=== PATIENT | male | born 1955 | race Caucasian/White ===

== ENCOUNTER → 2018-05-19 | Outpatient (CLI) | payer BC ==
[~2018-05-19] VITALS: Ht 170.2 cm; Wt 78.9 kg
[~2018-05-19] MED LIST: ALBU17AE23 INH; ASPI-892 PO; ATOR20TA66 PO; ATOR40TA PO; CATHETER FLUSH 10 ML SYR IV PRN; ENLP5T PO; FISH1CAP15 PO; GABA-488 PO; IBUP200C PO; METO50TA2 PO; MNTL10T PO
[2018-05-19 08:57] VITALS: BP 153/89
[2018-05-19 09:05] VITALS: BP 168/85
[2018-05-19 09:10] VITALS: BP 224/103
[2018-05-19 09:12] VITALS: BP 218/102
[2018-05-19 09:14] VITALS: BP 174/90
[2018-05-19 09:16] VITALS: BP 155/93
--- NOTE | 2018-05-19 12:41 | STRESS TEST ---
DATE OF SERVICE: 05/19/2018 EXERCISE MYOVIEW STRESS TEST REPORT REFERRING PHYSICIAN: [facility]. Baseline heart rate is 56. Baseline blood pressure is 133/82. Baseline EKG is sinus rhythm with no ischemic changes. In summary, the patient was injected with 10.24 mCi of technetium-99 Myoview and the resting images were obtained. Then, the patient started exercising with a baseline heart rate, blood pressure and EKG mentioned above. The patient was able to exercise for a total of 7 minutes 30 seconds on standard Chemo protocol. With peak exercise level, EKG was showing ST elevation in II, III, aVF, V4 and V5. Late, in recovery, the patient had an episode of wide complex tachycardia with a rate of 100 that short lived. It then returned to baseline at the end of the test. The resting and stress images were reviewed and compared in the short axis, horizontal long axis and vertical long axis views. Review of the images showed decreased uptake involving the whole inferior wall, inferoapical segment through apex and inferolateral wall with subtle reversibility. SSS is 28. SDS is 0. TID value 1.05. On the gated images, the left ventricle appeared to be dilated with severe hypokinesia to akinesia involving the whole inferior wall, inferoapical segment, inferior septum and inferolateral wall. Calculated ejection fraction is 26%. CONCLUSION: 1. Good exercise tolerance, a total of 7 minutes 30 seconds on standard Cehmo protocol, achieving 94% of maximum expected heart rate. 2. Severe hypertensive response to exercise returned to baseline during recovery. Peak exercise blood pressure was 224/103. 3. Positive exercise stress test by EKG criteria. 4. Fixed defect involving the whole inferior wall, inferoapical segment through apex and inferolateral wall with subtle reversibility. 5. Prominent left ventricle with severe hypokinesia to akinesia involving the whole inferior wall, inferolateral wall and inferoapical area with calculated ejection fraction 26%. Job ID: [id number] DocumentID: [id number] Dictated Date: 05/19/2018 11:47:27 Button Maker Date: 05/19/2018 12:41:28 Dictated By: DARVIN DEE MD
== END ==
LOC: CARD 07:48
PROVIDERS: ATTEND Internal Medicine Cardiovascular Disease
DX: I25.10 Atherosclerotic heart disease of native coronary artery without angina pectoris (principal); I11.0 Hypertensive heart disease with heart failure; I50.22 Chronic systolic (congestive) heart failure; E78.5 Hyperlipidemia, unspecified; E11.9 Type 2 diabetes mellitus without complications; Z72.0 Tobacco use
CPT/HCPCS: 78452; 93017

== ENCOUNTER → 2018-05-21 | Outpatient (CLI) | payer BC ==
[~2018-05-21] MED LIST changes: -CATHETER FLUSH 10 ML SYR IV PRN
== END ==
LOC: CARD 09:20
PROVIDERS: ATTEND Internal Medicine Cardiovascular Disease
DX: I25.10 Atherosclerotic heart disease of native coronary artery without angina pectoris (principal); I11.0 Hypertensive heart disease with heart failure; I50.9 Heart failure, unspecified; E78.5 Hyperlipidemia, unspecified; E11.9 Type 2 diabetes mellitus without complications; I08.1 Rheumatic disorders of both mitral and tricuspid valves; Z72.0 Tobacco use
CPT/HCPCS: 93306

== ENCOUNTER 2018-05-28 06:46 | Day surgery (SDC) | payer BC ==
[~2018-05-28] VITALS: Ht 170.2 cm; Wt 78.9 kg
[2018-05-28] VITALS (10 sets, daily range): BP systolic 142–160; BP diastolic 88–96
--- OUTSIDE RECORDS SUMMARY | 2018-05-28 06:48 | XMS REPORT ---
Author Author KIYA BIGGS Organization [facility] Address [address] [place] [address] Care Team Providers Care Burnt Lime Drawer Name Role Phone KIYA BIGGS Unavailable PROBLEMS Type Condition ICD9-CM Code QLN49-HK Code Onset Dates Condition Status SNOMED Code Problem Mixed hyperlipidemia E78.2 Active 478077112 Problem Hypertension, benign I10 Active 01824565 Problem Coronary artery disease involving [place] heart without angina pectoris , unspecified vessel or lesion type I25.10 Active 37825429 Problem Benign essential HTN I10 Active 55182272 Problem Hyperlipidemia, mixed E78.2 Active 258895958 Problem Diabetes type 2, controlled E11.9 Active 70252385 Problem COPD (chronic obstructive pulmonary disease) J44.9 Active 37829234 Problem Arthritis M19.90 Active 5850204 Problem Lumbago with sciatica, left side M54.42 Active 121122642 ALLERGIES No Information ENCOUNTERS Encounter Location Date Diagnosis [facility] [address] [address] Apr, [facility] [address] [address] Jan, Acute left-sided low back pain without sciatica M54.5 and Gross hematuria R31.0 [facility] [address] [address] Nov, Diabetes type 2, controlled E11.9 and Hypertension, benign I10 [facility] [address] [address] Sep, [facility] [address] [address] Jun, [facility] [address] [address] Apr, Oral abscess K12.2 and Fungal rash of trunk B36.9 [facility] [id number] [place] [address] Apr, [facility] [id number] [place] [address] Mar, [facility] [id number] [place] [address]- [address] Mar, [place] [address] [address] Mar, COPD (chronic obstructive pulmonary disease) J44.9 [place] [address] [address] Mar, Diabetes type 2, controlled E11.9 ; Arthritis M19.90 and Lumbago with sciatica, left side M54.42 [place] [address] [address] Mar, Benign essential HTN I10 and Hyperlipidemia, mixed E78.2 [place] [id number] [place] [address] Mar, Benign essential HTN I10 and Hyperlipidemia, mixed E78.2 [place] [id number] [place] [address] December, COPD (chronic obstructive pulmonary disease) J44.9 [place] [id number] [place] [address] Oct, [place] [id number] [place] [address] Sep, Hypertension, benign I10 and Diabetes type 2, controlled E11.9 [facility] [id number] [place] [address]- [address] Aug, [place] [id number] [place] [address] Aug, Acute nasopharyngitis J00 [facility] [address] [place] [address]- 6[address] Jun, [facility] [id number] [place] [address]- [address] Apr, [facility] [id number] [place] [address]- [address] Mar, [facility] [address] [address] Nov, Type 2 diabetes mellitus without complications E11.9 ; COPD (chronic obstructive pulmonary disease) J44.9 ; Coronary artery disease involving [place] heart without angina pectoris, unspecified vessel or lesion type I25.10 and Arthritis M19.90 [facility] [id number] [place] [address]695- 5544 Oct, CAD (coronary artery disease) I25.10 ; Chronic systolic heart failure I50.22 ; Benign essential HTN I10 and Hyperlipidemia, mixed E78.2 [facility] [id number] [place] [address]- 3[address] Sep, [facility] [id number] [place] [address]25- 37[address] Sep, [facility] [id number] [place] [address]- [address] Jul, [facility] [id number] [place] [address] 6[address]51- 80[address] Jun, Granuloma annulare L92.0 [facility] [id number] [place] [address]- 89[address] Mar, Diabetes 250.00 and Arthritis 716.90 [facility] [address] [place] [id number] Mar, Dental examination V72.2 [facility] [id number] [place] [address]- 76[address] Feb, [facility] [id number] [address] Feb, Diabetes 250.00 [facility] [address] [id number] [address] December, Diabetes mellitus 250.00 and Arthritis 716.90 [facility] [address] [id number] [place] [address] Nov, [facility] [address] [id number], [place] [address] Nov, [facility] [address] [id number] [place] [address] 26[address] Jun, [facility] [id number] [place] [address]- [address] Jun, [facility] [address] [facility] [id number] [place] [address] May, [facility] [address] [facility] [id number], [place] [address] May, [facility] [address] [id number] [place] [address]- 3868 May, [facility] [address] [facility] [id number], [place] [address] May, [facility] [address] [id number][place] [address] 9[address] May, [facility] [address] [id number], [place] [address] May, [facility] [address] [facility] [id number][place] [address] May, [facility] [address] [id number], [place] [address] May, [facility] [place] [facility] [address] [facility] [id number], [place] [address] Mar, [facility] [address] [id number] [place] [address]- [address] Mar, [facility] [place] [facility] [address] [id number] [place] [address]- 58[address] Mar, [facility] [place] [facility] [address] [id number] [place] [address]- 7600 Mar, [facility] [place] [facility] [address] [id number] [place] [address]- 1541 Jan, [facility] [place] [facility] [address] [id number] [place] [address]- 5[address] Jan, [facility] [place] [facility] [address] [id number] [place] [address]- 3764 Nov, [facility] [place] [facility] [address] [id number] [place] [address]- 3418 Nov, [facility] [place] [facility] [address] [id number] [place] [address]- 7613 Nov, [facility] [place] [facility] [address] [id number] [place] [address]- 4428 Nov, [facility] [place] [facility] [address] [id number] [place] [address]- 2127 Nov, [facility] [place] [facility] [address] [id number] [place] [address]- 4845 Nov, [facility] [place] [facility] [address] [id number] [place] [address]- 8401 Aug, [facility] [place] [facility] [address] [id number] [place] [address]- 3259 Aug, [facility] [place] [facility] [address] [id number] [place] [address]- 2312 Apr, [facility] [place] [facility] [address] [id number] [place] [address]- 8196 14 Apr, 2013 [facility] [place] [facility] [address] [id number] [place] [address]- [address] 06 Apr, 2013 [facility] [place] [facility] [address] [id number] [place] [address]- 3206 Jan, [facility] [place] [facility] [address] [id number] [place] [address]- 9935 Jan, [facility] [place] [facility] [address] [id number] [place] [address]- 69[address] December, [facility] [place] [facility] [address] [id number] [place] [address]- 9627 Sep, [facility] [place] [facility] [address] [id number] [place] [address]- 3929 Sep, [facility] [place] [facility] [address] [id number] [place] [address]- 9705 Aug, [facility] [address] [id number] [place] [address]- 3984 Jul, [facility] [address] [id number] [place] [address]- 6814 Jul, [facility] [place] [facility] [address] [id number] [place] [address]- 1063 Jul, [facility] [address] [id number] [place] [address]- 8271 Jul, [facility] [place] [facility] [address] [id number] [place] [address]- 1690 Jun, [facility] [place] [facility] [address] [id number] [place] [address]- 0405 Jun, [facility] [place] [facility] [address] [id number] [place] [address]- 2663 Jun, [facility] [place] [facility] [address] [id number] [place] [address]- 6248 Jun, [facility] [place] [facility] [address] [id number] [place] [address]- 8409 Jun, [facility] [place] [facility] [address] [id number], [place] [address]- 2546 Jun, [facility] [address] [address]- [address] May, [facility] [address] [address]- [address] May, [facility] [address] [address]- [address] Jan, [facility] [address] [address]- 8[address] Jan, [facility] [address] [address]- 4199 Jan, [facility] [address] [place] [address]- [address] December, [facility] [address] [address]- [address] Sep, [facility] [address] [address]- 8201 Jun, [facility] [address] [address]- 0562 Jun, [facility] [address] [address]- [address] 13 Apr, 2010 [facility] [id number] [address]- [address] 14 Apr, 2009 IMMUNIZATIONS No Known Immunizations SOCIAL HISTORY Never Assessed REASON FOR VISIT Referral PLAN OF CARE VITAL SIGNS MEDICATIONS Unknown Medications RESULTS No Results PROCEDURES No Known procedures INSTRUCTIONS MEDICATIONS ADMINISTERED No Known Medications MEDICAL (GENERAL) HISTORY Type Description Date Medical History hypertension Medical History chronic obstructive pulmonary disease (COPD) Medical History coronary artery disease Medical History hyperlipidemia Medical History eczema Medical History shingles Medical History herniated disc C1, C2 Medical History echocardiogram (12/2010): moderate MR, EF 40%, moderate hypokinesia Surgical History tonsillectomy Surgical History appendectomy Surgical History heart cath 12/2014 Surgical History quadruple bypass 06/2012 Surgical History left thumb reattached Hospitalization History surgeries
--- OUTSIDE RECORDS SUMMARY | 2018-05-28 06:49 | XMS REPORT ---
Author Author JERRY ALEXANDRA Organization [employer] Address Unknown Phone Unavailable Care Team Providers Care Rack Puller Name Role Phone JERRY ALEXANDRA CP Unavailable Allergies No Known Allergies Problems Problem Type Condition ICD-9 Code Onset Dates Condition Status Problem Coronary atherosclerosis of unspecified type of vessel, alutiiq or graft 414.00 Active Problem Unspecified pruritic disorder 698.9 Active Problem Herpes zoster without mention of complication 053.9 Active Assessment Dental examination V72.2 Active Problem Other and unspecified hyperlipidemia 272.4 Active Problem Chronic airway obstruction, not elsewhere classified 496 Active Problem Counseling on substance use and abuse V65.42 Active Problem Diabetes 250.00 Active Problem Rash and other nonspecific skin eruption 782.1 Active Problem Other atopic dermatitis and related conditions 691.8 Active Problem Essential hypertension, benign 401.1 Active Problem Candidiasis of other urogenital sites 112.2 Active Medications No Known Medications Procedures Procedure Coding System Code Date INTRAORL-PERIAPICAL 1 FILM 53200 CPT-4 D0220 Mar 15, 2015 EXTRAC ERUPTED TOOTH/EXPOSED ROOT CPT-4 D7140 Mar 15, 2015 LTD ORAL EVALUATION - PROBLEM FOCUS CPT-4 D0140 Mar 15, 2015 EXTRAC ERUPTED TOOTH/EXPOSED ROOT CPT-4 D7140 Mar 15, 2015 Results No Known Results Summary Purpose [employer] Submission
--- OUTSIDE RECORDS SUMMARY | 2018-05-28 06:49 | XMS REPORT ---
Author RADHA Agrawal Organization [employer] Address Unknown Phone Unavailable Care Team Providers Care Netting Inspector Name Role Phone RADHA PAYNE CP Unavailable Allergies No Known Allergies Problems Problem Type Condition Code Onset Dates Condition Status Problem Hypertension, benign I10 Active Problem Coronary artery disease involving [place] heart without angina pectoris , unspecified vessel or lesion type I25.10 Active Problem COPD (chronic obstructive pulmonary disease) J44.9 Active Problem Mixed hyperlipidemia E78.2 Active Problem Diabetes type 2, controlled E11.9 Active Medications No Known Medications Results No Known Results Summary Purpose [employer] Submission
--- OUTSIDE RECORDS SUMMARY | 2018-05-28 06:49 | XMS REPORT ---
Author Author NOREEN LYNCH [facility] Address [address] [place] [address] Care Team Providers Care Vacuum Technician Name Role Phone NOREEN LYNCH Unavailable PROBLEMS Type Condition ICD9-CM Code QGC58-HC Code Onset Dates Condition Status SNOMED Code Problem Mixed hyperlipidemia E78.2 Active 607804977 Problem Hypertension, benign I10 Active 62175397 Problem Coronary artery disease involving [place] heart without angina pectoris , unspecified vessel or lesion type I25.10 Active 41853998 Problem Benign essential HTN I10 Active 69683595 Problem Hyperlipidemia, mixed E78.2 Active 385872387 Problem Diabetes type 2, controlled E11.9 Active 64075559 Problem COPD (chronic obstructive pulmonary disease) J44.9 Active 17635596 Problem Arthritis M19.90 Active 0240472 Problem Lumbago with sciatica, left side M54.42 Active 177017577 ALLERGIES Substance Reaction Event Type Date Status N.K.D.A. Unknown Non Drug Allergy Aug, Unknown SOCIAL HISTORY No smoking Hx information available PLAN OF CARE VITAL SIGNS Height 67 in 2016-08-14 Weight 195 lbs 2016-08-14 Temperature 98.1 degrees Fahrenheit 2016-08-14 Heart Rate 80 bpm 2016-08-14 Respiratory Rate 20 2016-08-14 BMI 30.54 kg/m2 2016-08-14 Blood pressure systolic 140 mmHg 2016-08-14 Blood pressure diastolic 80 mmHg 2016-08-14 MEDICATIONS Medication Instructions Dosage Frequency Start Date End Date Duration Status Enalapril Maleate 5 mg 1 tablet by Oral route 2 times per day Mar, Active Ibuprofen 600 MG Orally every 6 hrs 1 tablet as needed 6h Active Aspirin 81 MG Orally Once a day 1 tablet 24h Active Pseudoephedrine HCl 60 mg Orally every 6 hrs 1 tablet as needed 6h Aug, Active Fish Oil 1000 MG Orally twice a day 1 capsule 12h Active ProAir HFA 108 (90 Base) MCG/ACT Inhalation every 4 hrs 2 puffs as needed 4h Active Blood Glucose Monitor Blood Glucose test blood sugar 12h 27 Feb, 2015 Active Metformin HCl 1,000 TAKE ONE TABLET BY MOUTH TWICE A DAY WITH MEALS 30 Active Lipitor 20 MG Orally Once a day 1 tablet 24h Active Metoprolol Tartrate 50 MG TAKE ONE TABLET BY MOUTH TWICE DAILY WITH MEALS 30 Active Neurontin 300 MG TAKE ONE CAPSULE BY MOUTH THREE TIMES DAILY FOR SHINGLES RELATED NEUROPATHY 30 Active RESULTS No Results PROCEDURES Procedure Date Ordered Related Diagnosis Body Site Office Visit, Est Pt., Level 2 Aug 14, 2016 IMMUNIZATIONS No Known Immunizations
--- OUTSIDE RECORDS SUMMARY | 2018-05-28 06:49 | XMS REPORT ---
Author Author KIYA BIGGS Organization [facility] Address [address] [place] [address] Care Team Providers Care Laboratory Engineer Name Role Phone KIYA BIGGS Unavailable PROBLEMS Type Condition ICD9-CM Code RSP90-MD Code Onset Dates Condition Status SNOMED Code Problem Mixed hyperlipidemia E78.2 Active 034437811 Problem Hypertension, benign I10 Active 31834819 Problem Coronary artery disease involving [place] heart without angina pectoris , unspecified vessel or lesion type I25.10 Active 55126442 Problem Benign essential HTN I10 Active 97998637 Problem Hyperlipidemia, mixed E78.2 Active 234567533 Problem Diabetes type 2, controlled E11.9 Active 84620475 Problem COPD (chronic obstructive pulmonary disease) J44.9 Active 19360296 Problem Arthritis M19.90 Active 4939266 Problem Lumbago with sciatica, left side M54.42 Active 670948453 ALLERGIES No Information SOCIAL HISTORY Never Assessed PLAN OF CARE VITAL SIGNS MEDICATIONS Medication Instructions Dosage Frequency Start Date End Date Duration Status ProAir HFA 108 (90 Base) MCG/ACT Inhalation every 4 hrs 2 puffs as needed 4h 30 days Active RESULTS No Results PROCEDURES No Known procedures IMMUNIZATIONS No Known Immunizations MEDICAL (GENERAL) HISTORY Type Description Date Medical [...]
--- OUTSIDE RECORDS SUMMARY | 2018-05-28 06:49 | XMS REPORT ---
Author KIYA Sigala [facility] [employer] Address Unknown Phone Unavailable Care Team Providers Care Bobj Developer Name Role Phone KIYA BIGGS CP Unavailable Allergies, Adverse Reactions, Alerts Substance Reaction Event Type N.K.D.A. Info Not Available Non Drug Allergy Problems Problem Type Condition Code Onset Dates Condition Status Problem Hypertension, benign I10 Active Problem Coronary artery disease involving [place] heart without angina pectoris , unspecified vessel or lesion type I25.10 Active Problem COPD (chronic obstructive pulmonary disease) J44.9 Active Assessment Granuloma annulare L92.0 Active Problem Mixed hyperlipidemia E78.2 Active Problem Diabetes type 2, controlled E11.9 Active Medications Medication Code System Code Instructions Start Date End Date Status Dosage Metoprolol Tartrate [facility] 37648046614 50 MG TAKE ONE TABLET BY MOUTH TWICE DAILY WITH MEALS Metformin HCl [facility] [address]-00 1000 MG Orally Twice a day December 31, 2014 1 tablet with meals Aspirin [facility] [address]-20 81 MG Orally Once a day 1 tablet Blood Glucose Monitor [facility] 0 Blood Glucose 2 times a day March 07, 2015 test blood sugar ProAir HFA [facility] 52679829465 108 (90 Base) MCG/ACT INHALE TWO PUFFS BY MOUTH FOUR TIMES DAILY Neurontin [facility] 99206909111 300 MG TAKE ONE CAPSULE BY MOUTH THREE TIMES DAILY FOR SHINGLES RELATED NEUROPATHY Enalapril Maleate [facility] [address]-38 5 mg Mar 19, 2014 1 tablet by Oral route 2 times per day Triamcinolone Acetonide [facility] [address]-04 0.1 % Externally Twice a day Jun 22, 2015 1 application to affected area Ibuprofen [facility] [address]-84 600 MG Orally every 6 hrs 1 tablet as needed Procedures Procedure Coding System Code Date Office Visit, Est Pt., Level 3 CPT-4 31112 Jun 22, 2015 Vital Signs Date/Time: Jun 22, 2015 Temperature 98.4 F Weight 203.7 lbs Height 67 in BMI 31.90 Index Blood Pressure Diastolic 76 mmHg Blood Pressure Systolic 112 mmHg Cardiac Monitoring Heart Rate 64 bpm Results No Known Results Summary Purpose [employer] Submission
--- OUTSIDE RECORDS SUMMARY | 2018-05-28 06:49 | XMS REPORT ---
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 Name Role Phone KIYA BIGGS Unavailable PROBLEMS Type Condition ICD9-CM Code BVC96-CJ Code Onset Dates Condition Status SNOMED Code Problem Mixed hyperlipidemia E78.2 Active 028417395 Problem Hypertension, benign I10 Active 10737676 Problem Coronary artery disease involving belkofski heart without angina pectoris , unspecified vessel or lesion type I25.10 Active 41355109 Problem Benign essential HTN I10 Active 38312911 Problem Hyperlipidemia, mixed E78.2 Active 979304075 Problem Diabetes type 2, controlled E11.9 Active 27098481 Problem COPD (chronic obstructive pulmonary disease) J44.9 Active 96347023 Problem Arthritis M19.90 Active 1112349 Problem Lumbago with sciatica, left side M54.42 Active 297819197 ALLERGIES No Known Allergies ENCOUNTERS Encounter Location Date Diagnosis [place] [id number] [address] Jan, Acute left-sided low back pain without sciatica M54.5 and Gross hematuria R31.0 [place] [address] [place] [id number] [place] [address]7038- [address]32 Nov, Diabetes type 2, controlled E11.9 and Hypertension, benign I10 [facility] [address] [address] [id number] [place] [address] 22188- 4398 Sep, [facility] [address] [address] Jun, [facility] [address] [id number] [place] [address] Apr, Oral abscess K12.2 and Fungal rash of trunk B36.9 [facility] [address] [place] [id number] [place] [address] Apr, [facility] [address] [id number] [place] [address] 28257- 6867 Mar, [facility] [id number] [place] [address] 87710- 0680 Mar, [facility] [address] [address] [id number] [place] [address] 18180- 6827 Mar, COPD (chronic obstructive pulmonary disease) J44.9 [facility] [address] [address] [id number] [place] [address] 75531- 2690 Mar, Diabetes type 2, controlled E11.9 ; Arthritis M19.90 and Lumbago with sciatica, left side M54.42 [facility] [id number] [place] [address] 76114- 3788 Mar, Benign essential HTN I10 and Hyperlipidemia, mixed E78.2 [facility] [id number] [place] [address] 21061- 4049 Mar, Benign essential HTN I10 and Hyperlipidemia, mixed E78.2 [facility] [id number] [place] [address] 99317- 1853 December, COPD (chronic obstructive pulmonary disease) J44.9 [facility] [id number] [place] [address] 93885- 3399 Oct, [facility] [id number] [place] [address] 86368- 3767 Sep, Hypertension, benign I10 and Diabetes type 2, controlled E11.9 [facility] [id number] [place] [address] 24059- 3046 Aug, [facility] [id number] [place] [address] 34301- 5116 Aug, Acute nasopharyngitis J00 [facility] [address] [id number] [place] [address] 25658- 9365 Jun, [facility] [address] [id number] [place] [address] 98034- 8667 Apr, [facility] [address] [address]- [address] Mar, [facility] [address] [address]28- 1462 Nov, Type 2 diabetes mellitus without complications E11.9 ; COPD (chronic obstructive pulmonary disease) J44.9 ; Coronary artery disease involving belkofski heart without angina pectoris, unspecified vessel or lesion type I25.10 and Arthritis M19.90 [place] [address] [address]- [address] Oct, CAD (coronary artery disease) I25.10 ; Chronic systolic heart failure I50.22 ; Benign essential HTN I10 and Hyperlipidemia, mixed E78.2 [place] [address] 33[address]- 3977 Sep, [facility] [address] 17197- 5338 Sep, [facility] [address] [address]- 5812 Jul, [facility] [address] [address]27- 7240 Jun, Granuloma annulare L92.0 [facility] [address] 02558- 9961 Mar, Diabetes 250.00 and Arthritis 716.90 [facility] [place] [facility] [address] [id number] [place] [address] [id number] Mar, Dental examination V72.2 [facility] [address] [place] [id number] [place] [address] 07476- 6713 Feb, [facility] [address] [place] [id number] [place] [address] 08587- 6229 Feb, Diabetes 250.00 [place] [address] [id number] [place] [address] 2434 December, Diabetes mellitus 250.00 and Arthritis 716.90 [facility] [place] [facility] [address] [id number] [place] [address]- 8647 Nov, [facility] [place] [facility] [address] [facility] [id number] [place] [address]- 7476 Nov, [facility] [place] [facility] [address] [id number], [place] [address] 2303 Jun, [facility] [place] [facility] [address] [id number] [place] [address]- 3454 Jun, [facility] [place] [facility] [address] [id number] [place] [address]- 2773 May, [facility] [place] [facility] [address] [facility] [id number] [place] [address]- 6252 May, [facility] [place] [facility] [address] [id number], [place] [address]- 7611 May, [facility] [place] [facility] [address] [id number] [place] [address]- 5242 May, [facility] [place] [facility] [address] [facility] [id number], [place] [address]- 3065 May, [facility] [place] [facility] [address] [id number], [place] [address]- 8124 May, [facility] [place] [facility] [address] [id number], [place] [address]- 9824 May, [facility] [place] [facility] [address] [id number] [place] [address]- 6907 May, [facility] [place] [facility] [address] [facility] [id number], [place] [address]- 3820 Mar, [facility] [place] [facility] [address] [facility] [id number] [place] [address]- 3156 Mar, [facility] [place] [facility] [address] [id number] [place] [address]- 0647 Mar, [facility] [address] [id number] [place] [address]- 0868 Mar, [facility] [place] [facility] [address] [id number] [place] [address]- 2530 Jan, [facility] [place] [facility] [address] [id number] [place] [address]- 9015 Jan, [facility] [place] [facility] [address] [id number] [place] [address]- 0894 Nov, [facility] [place] [facility] [address] [id number] [place] [address]- 3658 Nov, [facility] [place] [facility] [address] [id number] [place] [address]- 0503 Nov, [facility] [place] [facility] [address] [id number] [place] [address]- 4323 Nov, [facility] [place] [facility] [address] [id number] [place] [address]- 2155 Nov, [facility] [place] [facility] [address] [id number] [place] [address]- 4874 Nov, [facility] [place] [facility] [address] [id number] [place] [address]- 6955 Aug, [facility] [place] [facility] [address] [id number] [place] [address]- 7617 Aug, [facility] [place] [facility] [address] [id number] [place] [address]- 2227 Apr, [facility] [place] [facility] [address] [id number] [place] [address]- 7099 14 Apr, 2013 [facility] [place] [facility] [address] [id number] [place] [address]- 3422 06 Apr, 2013 [facility] [place] [facility] [address] [id number] [place] [address]- 1713 Jan, [facility] [place] [facility] [address] [id number] [place] [address]- 2637 Jan, [facility] [place] [facility] [address] [id number] [place] [address]- 1454 December, [facility] [place] [facility] [address] [id number] [place] [address]- 6896 Sep, [facility] [place] [facility] [address] [id number] [place] [address]- 7094 Sep, [facility] [place] [facility] [address] [id number] [place] [address]- 2030 Aug, [facility] [place] [facility] [address] [id number] [place] [address]- 2898 Jul, [facility] [place] [facility] [address] [id number] [place] [address]- 1795 Jul, [facility] [address] [id number] [place] [address]- 0159 Jul, [facility] [place] [facility] [address] [id number] [place] [address]- 2895 Jul, [facility] [place] [facility] [address] [id number] [place] [address]- 4496 Jun, [facility] [place] [facility] [address] [id number] [place] [address]- 8128 Jun, [facility] [place] [facility] [address] [id number] [place] [address]- 1596 Jun, [facility] [place] [facility] [address] [id number] [place] [address]- 9203 Jun, [facility] [place] [facility] [address] [id number] [place] [address]- 0964 Jun, [facility] [place] [facility] [address] [id number] [place] [address]- 6435 Jun, [facility] [place] [facility] [address] [id number], [place] [address]- 2546 May, [facility] [address] [address] 2546 May, [facility] [address], [place] [address]- 2546 Jan, [facility] [address], [place] [address]- 2546 Jan, [facility] [id number] [place] [address] 43497- 2546 Jan, [facility] [address], [place] [address]- 2546 December, [facility] [id number] [place] [address] 56523- 2546 Sep, [facility] [address] [place] [id number] [place] [address] 68266- 2546 Jun, [facility] [address], [place] [address]- 2546 Jun, [facility] [address], [place] [address]- 7[address] 13 Apr, 2010 [facility] [address], [place] [address] 2546 14 Apr, 2009 IMMUNIZATIONS Vaccine Route Administration Date Status TORADOL (IM) 60 MG/2ML (UP TO 15 MG) IM Intramuscular January 28, 2018 Administered SOCIAL HISTORY Never Assessed REASON FOR VISIT Pain (acute)back, PT reports the pain started this weekend 01/25 and feels it mgiht be kidney stones. PT notes the pain seems to be coming and going. PT notes there is a lump that appeared, and the pain seems to move from the left of his back and moves towards the front -Ryan Lopez PLAN OF CARE VITAL SIGNS Height 67 in 2018-01-28 Weight 174.4 lbs 2018-01-28 Temperature 98.0 degrees Fahrenheit 2018-01-28 Heart Rate 80 bpm 2018-01-28 Respiratory Rate 20 2018-01-28 Oximetry on room air:95 % 2018-01-28 BMI 27.31 kg/m2 2018-01-28 Blood pressure systolic 138 mmHg 2018-01-28 Blood pressure diastolic 88 mmHg 2018-01-28 MEDICATIONS Medication Instructions Dosage Frequency Start Date End Date Duration Status Lipitor 20 MG Orally Once a day 1 tablet 24h Active Neurontin 300 MG TAKE ONE CAPSULE BY MOUTH THREE TIMES DAILY FOR SHINGLES RELATED NEUROPATHY 30 Active Fish Oil 1000 MG Orally twice a day 1 capsule 12h Active Enalapril Maleate 5 mg 1 tablet by Oral route 2 times per day Mar, Active Metoprolol Tartrate 50 mg TAKE ONE TABLET BY MOUTH TWICE DAILY WITH MEALS 30 Active ProAir HFA 108 (90 Base) MCG/ACT INHALE 2 PUFFS BY MOUTH EVERY 4 HOURS NEEDED. 16 Active Singulair 10 mg 1 tablet by Oral route 1 time per day Jan, Not-Taking Naproxen 500 mg Orally every 12 hrs 1 tablet as needed 12h Mar, Active Aspirin 81 MG Orally Once a day 1 tablet 24h Active Metformin HCl 1000 MG TAKE ONE TABLET BY MOUTH TWICE DAILY WITH MEALS 30 Active Ketorolac Tromethamine 10 MG Orally every 6 hrs 1 tablet with food or milk as needed 6h Jan, Jan, 5 day(s) Active Blood Glucose Monitor Blood Glucose test blood sugar 12h Feb, Active PredniSONE 20 mg Orally Once a day 2 tablets 24h Jan, Jan, 05 days Active Bactrim DS 800-160 MG Orally Twice a day 1 tablet 12h Jan,Jan 10 day(s) Active RESULTS Name Result Date Reference Range UA LONG DIP (IN HOUSE) 2018-01-28 Lot # [id number] Exp date 11/2018 Clarity clear Color yellow Odor none GLU 1 plus NINO negative KET negative SG >=1.030 BLO 3 plus pH 5.5 Protein trace URO 0.2 NIT negative SHADI negative Lot # Exp date PROCEDURES Procedure Date Ordered Result Body Site URINALYSIS, AUTO, W/O SCOPE January 28, 2018 THER/PROPH/DIAG INJ, SC/IM January 28, 2018 TORADOL (IM) 60 MG/2ML (UP TO 15 MG) January 28, 2018 INSTRUCTIONS MEDICATIONS ADMINISTERED No Known Medications MEDICAL [...]
--- OUTSIDE RECORDS SUMMARY | 2018-05-28 06:49 | XMS REPORT ---
Author Author KIYA BIGGS Organization [facility] Address [address] [place] [address] Care Team Providers Care Studio Coordinator Name Role Phone KIYA BIGGS Unavailable PROBLEMS Type Condition ICD9-CM Code ZUJ10-EI Code Onset Dates Condition Status SNOMED Code Problem Mixed hyperlipidemia E78.2 Active 252093882 Problem Hypertension, benign I10 Active 12292244 Problem Coronary artery disease involving [place] heart without angina pectoris , unspecified vessel or lesion type I25.10 Active 05793143 Problem Benign essential HTN I10 Active 03688116 Problem Hyperlipidemia, mixed E78.2 Active 891287067 Problem Diabetes type 2, controlled E11.9 Active 01114231 Problem COPD (chronic obstructive pulmonary disease) J44.9 Active 35699899 Problem Arthritis M19.90 Active 4958437 Problem Lumbago with sciatica, left side M54.42 Active 198192779 ALLERGIES No Known Allergies ENCOUNTERS Encounter Location Date Diagnosis [place] [id number] [address] Jan, Acute left-sided low back pain without sciatica M54.5 and Gross hematuria R31.0 [place] [address] [place] [id number] [place] [address] 86744- 5172 Nov, Diabetes type 2, controlled E11.9 and Hypertension, benign I10 [facility] [id number] [place] [address] 81690- 3052 Sep, [facility] [address] [address] Jun, [facility] [id number] [place] [address] -4010 Apr, Oral abscess K12.2 and Fungal rash of trunk B36.9 [facility] [address] [place] [id number] [place] [address] Apr, [facility] [id number] [place] [address]39- 8870 Mar, [facility] [id number] [place] [address] 15624- 9987 Mar, [facility] [address] [id number] [place] [address]80- 2200 Mar, COPD (chronic obstructive pulmonary disease) J44.9 [facility] [address] [place] [address] [id number] [place] [address] 90170- 7197 Mar, Diabetes type 2, controlled E11.9 ; Arthritis M19.90 and Lumbago with sciatica, left side M54.42 [facility] [id number] [place] [address] 46116- 0311 Mar, Benign essential HTN I10 and Hyperlipidemia, mixed E78.2 [facility] [id number] [place] [address] 79791- 8757 Mar, Benign essential HTN I10 and Hyperlipidemia, mixed E78.2 [facility] [address] [id number] [place] [address] 46704- 5559 December, COPD (chronic obstructive pulmonary disease) J44.9 [facility] [address] [id number] [place] [address] 16272- 5857 Oct, [facility] [address] [id number] [place] [address] 56127- 4601 Sep, Hypertension, benign I10 and Diabetes type 2, controlled E11.9 [facility] [address] [id number] [place] [address] 80209- 6310 Aug, [facility] [id number] [place] [address] 89979- 6643 Aug, Acute nasopharyngitis J00 [facility] [address] [place] [id number] [place] [address] 68579- 1751 Jun, [facility] [address] [place] [id number] [place] [address] 18942- 5628 Apr, [facility] [address] [address]- 244[address] Mar, [facility] [address] 56[address]- 7672 Nov, Type 2 diabetes mellitus without complications E11.9 ; COPD (chronic obstructive pulmonary disease) J44.9 ; Coronary artery disease involving [place] heart without angina pectoris, unspecified vessel or lesion type I25.10 and Arthritis M19.90 [place] [address] [address]- [address] Oct, CAD (coronary artery disease) I25.10 ; Chronic systolic heart failure I50.22 ; Benign essential HTN I10 and Hyperlipidemia, mixed E78.2 [place] [address] [address]- 6928 Sep, [facility] [address] 37135- [address]90 Sep, [facility] [address] [address]367- 137[address] Jul, [facility] [address] 86[address]- 2367 Jun, Granuloma annulare L92.0 [facility] [address] [address]- 1744 Mar, Diabetes 250.00 and Arthritis 716.90 [facility] [address] [place] [address] [id number] [place] [address] [id number] Mar, Dental examination V72.2 [facility] [address] [place] [id number] [place] [address] 28114- 4180 Feb, [facility] [address] [place] [id number] [place] [address] 84308- 5159 Feb, Diabetes 250.00 [place] [address] [id number] [place] [address]- [address]87 December, Diabetes mellitus 250.00 and Arthritis 716.90 [facility] [place] [facility] [address] [id number] [place] [address]- 9698 Nov, [facility] [place] [facility] [address] [facility] [id number] [place] [address]- 1595 Nov, [facility] [place] [facility] [address] [id number], [place] [address] 1767 Jun, [facility] [place] [facility] [address] [id number] [place] [address]- 1046 Jun, [facility] [place] [facility] [address] [id number] [place] [address]- 9963 May, [facility] [place] [facility] [address] [facility] [id number] [place] [address]- 7003 May, [facility] [place] [facility] [address] [id number], [place] [address] 3998 May, [facility] [place] [facility] [address] [id number] [place] [address]- 8807 May, [facility] [place] [facility] [address] [facility] [id number], [place] [address] 7053 May, [facility] [place] [facility] [address] [id number], [place] [address]- 4457 May, [facility] [place] [facility] [address] [id number], [place] [address]- 5861 May, [facility] [place] [facility] [address] [id number] [place] [address]- 7493 May, [facility] [place] [facility] [address] [facility] [id number], [place] [address]- 5888 Mar, [facility] [place] [facility] [address] [facility] [id number] [place] [address]- 6411 Mar, [facility] [place] [facility] [address] [id number] [place] [address]- 9274 Mar, [facility] [address] [id number] [place] [address]- 6160 Mar, [facility] [place] [facility] [address] [id number] [place] [address]- 6015 Jan, [facility] [place] [facility] [address] [id number] [place] [address]- 3123 Jan, [facility] [place] [facility] [address] [id number] [place] [address]- 3824 Nov, [facility] [place] [facility] [address] [id number] [place] [address]- 1647 Nov, [facility] [place] [facility] [address] [id number] [place] [address]- 1089 Nov, [facility] [place] [facility] [address] [id number] [place] [address]- 9060 Nov, [facility] [place] [facility] [address] [id number] [place] [address]- 1510 Nov, [facility] [place] [facility] [address] [id number] [place] [address]- 6834 Nov, [facility] [place] [facility] [address] [id number] [place] [address]- 3832 Aug, [facility] [place] [facility] [address] [id number] [place] [address]- 6586 Aug, [facility] [place] [facility] [address] [id number] [place] [address]- 4443 Apr, [facility] [place] [facility] [address] [id number] [place] [address]- 6319 14 Apr, 2013 [facility] [place] [facility] [address] [id number] [place] [address]- 3015 06 Apr, 2013 [facility] [place] [facility] [address] [id number] [place] [address]- 4136 Jan, [facility] [place] [facility] [address] [id number] [place] [address]- 7355 Jan, [facility] [place] [facility] [address] [id number] [place] [address]- 3793 December, [facility] [place] [facility] [address] [id number] [place] [address]- 7205 Sep, [facility] [place] [facility] [address] [id number] [place] [address]- 2596 Sep, [facility] [place] [facility] [address] [id number] [place] [address]- 1779 Aug, [facility] [place] [facility] [address] [id number] [place] [address]- 4377 Jul, [facility] [place] [facility] [address] [id number] [place] [address]- 7348 Jul, [facility] [address] [id number] [place] [address]- 1397 Jul, [facility] [place] [facility] [address] [id number] [place] [address]- 3208 Jul, [facility] [place] [facility] [address] [id number] [place] [address]- 6133 Jun, [facility] [place] [facility] [address] [id number] [place] [address]- 6262 Jun, [facility] [place] [facility] [address] [id number] [place] [address]- 6052 Jun, [facility] [place] [facility] [address] [id number] [place] [address]- 3956 Jun, [facility] [place] [facility] [address] [id number] [place] [address]- 0624 Jun, [facility] [place] [facility] [address] [id number] [place] [address]- 0348 Jun, [facility] [place] [facility] [address] [id number], [place] [address]- 2046 May, [facility] [address] [address]- 4284 May, [facility] [address] [address]- 6060 Jan, [facility] [address] [address]- 4424 Jan, [facility] [id number] [place] [address] 136861- 4692 Jan, [facility] [id number] [place] [address] 033348- 1635 December, [facility] [id number] [place] [address] 94251- 5516 Sep, [facility] [address] [place] [id number] [place] [address] 01195- 9484 Jun, [facility] [address], [place] [address]- 5982 Jun, [facility] [address] [address]- 3295 Apr, [facility] [address] [address]- 59[address] 14 Apr, 2009 IMMUNIZATIONS No Known Immunizations SOCIAL HISTORY Never Assessed REASON FOR VISIT diabetic f/u -Edie SANDHU PLAN OF CARE Activity Details Follow Up 4 Months Reason:dm2 3mo. ckup VITAL SIGNS Height 67 in 2017-11-15 Weight 181.6 lbs 2017-11-15 Temperature 98.3 degrees Fahrenheit 2017-11-15 Heart Rate 72 bpm 2017-11-15 Respiratory Rate 18 2017-11-15 BMI 28.44 kg/m2 2017-11-15 Blood pressure systolic 132 mmHg 2017-11-15 Blood pressure diastolic 72 mmHg 2017-11-15 MEDICATIONS Medication Instructions Dosage Frequency Start Date End Date Duration Status ProAir HFA 108 (90 Base) MCG/ACT Inhalation every 4 hrs 2 puffs as needed 4h 30 days Active Naproxen 500 mg Orally every 12 hrs 1 tablet as needed 12h Mar, Active Aspirin 81 MG Orally Once a day 1 tablet 24h Active Singulair 10 mg 1 tablet by Oral route 1 time per day Jan, Not-Taking Fish Oil 1000 MG Orally twice a day 1 capsule 12h Active Enalapril Maleate 5 mg 1 tablet by Oral route 2 times per day Mar, Active Blood Glucose Monitor Blood Glucose test blood sugar 12h Feb, Active Metoprolol Tartrate 50 mg TAKE ONE TABLET BY MOUTH TWICE DAILY WITH MEALS 30 Active Lipitor 20 MG Orally Once a day 1 tablet 24h Active Metformin HCl 1000 MG TAKE ONE TABLET BY MOUTH TWICE DAILY WITH MEALS 30 Active Neurontin 300 MG TAKE ONE CAPSULE BY MOUTH THREE TIMES DAILY FOR SHINGLES RELATED NEUROPATHY 30 Active RESULTS Name Result Date Reference Range A1C (IN HOUSE) 2017-11-15 A1C IN HOUSE 6.6 4.3 - 5.6 % Previous A1c 6.9 Lot [id number] Exp date 06/2019 MICROALBUMIN, URINE (IN HOUSE) 2017-11-15 MICROALBUMIN normal Lot # [id number] Exp date 07/2018 Clarity clear Color yellow ALB 10 CRE 100 A:C (IN HOUSE) <30 Control normal Control Lot # Exp date PROCEDURES Procedure Date Ordered Result Body Site GLYCATED HEMOGLOBIN TEST November 15, 2017 MICROALBUMIN, SEMIQUANT November 15, 2017 INSTRUCTIONS MEDICATIONS ADMINISTERED No Known Medications MEDICAL [...]
--- OUTSIDE RECORDS SUMMARY | 2018-05-28 06:50 | XMS REPORT ---
Author Author KIYA BIGGS [facility] Address [address] [place] [address] Care Team Providers Care Radio Division Lieutenant Name Role Phone KIYA BIGGS Unavailable PROBLEMS Type Condition ICD9-CM Code LPT60-HO Code Onset Dates Condition Status SNOMED Code Problem Mixed hyperlipidemia E78.2 Active 115452019 Problem Hypertension, benign I10 Active 86546947 Problem Coronary artery disease involving [place] heart without angina pectoris , unspecified vessel or lesion type I25.10 Active 68469867 Problem Benign essential HTN I10 Active 27652367 Problem Hyperlipidemia, mixed E78.2 Active 949986658 Problem Diabetes type 2, controlled E11.9 Active 24010999 Problem COPD (chronic obstructive pulmonary disease) J44.9 Active 39473967 Problem Arthritis M19.90 Active 6183901 Problem Lumbago with sciatica, left side M54.42 Active 931421575 ALLERGIES Substance Reaction Event Type Date Status N.K.D.A. Unknown Non Drug Allergy Sep, Unknown SOCIAL HISTORY No smoking Hx information available PLAN OF CARE VITAL SIGNS Height 67 in 2016-09-14 Weight 192.1 lbs 2016-09-14 Temperature 98.1 degrees Fahrenheit 2016-09-14 Heart Rate 62 bpm 2016-09-14 Respiratory Rate 20 2016-09-14 BMI 30.08 kg/m2 2016-09-14 Blood pressure systolic 130 mmHg 2016-09-14 Blood pressure diastolic 88 mmHg 2016-09-14 MEDICATIONS Medication Instructions Dosage Frequency Start Date End Date Duration Status Enalapril Maleate 5 mg 1 tablet by Oral route 2 times per day Mar, Active Aspirin 81 MG Orally Once a day 1 tablet 24h Active Ibuprofen 600 MG Orally every 6 hrs 1 tablet as needed 6h Active Metformin HCl 1000 MG TAKE ONE TABLET BY MOUTH TWICE DAILY WITH MEALS 30 Active Fish Oil 1000 MG Orally twice a day 1 capsule 12h Active Neurontin 300 MG TAKE ONE CAPSULE BY MOUTH THREE TIMES DAILY FOR SHINGLES RELATED NEUROPATHY 30 Active Blood Glucose Monitor Blood Glucose test blood sugar 12h Feb, Active Lipitor 20 MG Orally Once a day 1 tablet 24h Active Metoprolol Tartrate 50 mg TAKE ONE TABLET BY MOUTH TWICE DAILY WITH MEALS 30 Active ProAir HFA 108 (90 Base) MCG/ACT Inhalation every 4 hrs 2 puffs as needed 4h Active RESULTS Name Result Date Reference Range A1C (IN HOUSE) 2016-09-14 A1C IN HOUSE 6.6 4.3 - 5.6 % Previous A1c 7.3 Lot [id number] Exp date 06/2018 MICROALBUMIN, URINE (IN HOUSE) 2016-09-14 MICROALBUMIN normal Lot # [id number] Exp date 09/2017 Clarity clear Color yellow ALB 30 CRE 100 A:C (IN HOUSE) <30 Control + Control Lot # Exp date PROCEDURES Procedure Date Ordered Related Diagnosis Body Site Office Visit, Est Pt., Level 3 Sep 14, 2016 GLYCATED HEMOGLOBIN TEST Sep 14, 2016 MICROALBUMIN, SEMIQUANT Sep 14, 2016 IMMUNIZATIONS No Known Immunizations
--- OUTSIDE RECORDS SUMMARY | 2018-05-28 06:50 | XMS REPORT ---
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 Name Role Phone KIYA BIGGS CP Unavailable Allergies No Known Allergies Problems Problem Type Condition Code Onset Dates Condition Status Problem Hypertension, benign I10 Active Problem Coronary artery disease involving [place] heart without angina pectoris , unspecified vessel or lesion type I25.10 Active Problem COPD (chronic obstructive pulmonary disease) J44.9 Active Problem Mixed hyperlipidemia E78.2 Active Problem Diabetes type 2, controlled E11.9 Active Medications Medication Code System Code Instructions Start Date End Date Status Dosage Metformin HCl [facility] [id number] 1,000 Orally Twice a day 1 tablet with meals Results No Known Results Summary Purpose [employer] Submission
--- OUTSIDE RECORDS SUMMARY | 2018-05-28 06:50 | XMS REPORT ---
Author Author ALVERTO SIEGEL Organization [facility] Address [address] [place] [address] Care Team Providers Care Occupational Health Physiotherapist Name Role Phone ALVERTO SIEGEL Unavailable PROBLEMS Type Condition ICD9-CM Code EGW30-DT Code Onset Dates Condition Status SNOMED Code Problem Mixed hyperlipidemia E78.2 Active 984296263 Problem Hypertension, benign I10 Active 19443137 Problem Coronary artery disease involving [place] heart without angina pectoris , unspecified vessel or lesion type I25.10 Active 20518918 Problem Benign essential HTN I10 Active 10857946 Problem Hyperlipidemia, mixed E78.2 Active 445245237 Problem Diabetes type 2, controlled E11.9 Active 78503691 Problem COPD (chronic obstructive pulmonary disease) J44.9 Active 11802194 Problem Arthritis M19.90 Active 5150898 Problem Lumbago with sciatica, left side M54.42 Active 765087405 ALLERGIES No Known Allergies ENCOUNTERS Encounter Location Date Diagnosis [facility] [id number] [place] [address] 13951- 4939 Nov, Diabetes type 2, controlled E11.9 and Hypertension, benign I10 [facility] [id number] [place] [address] 83075- 8869 Sep, [facility] [address] [address]- 2907 Jun, [facility] [id number] [place] [address] 41330 -6507 Apr, Oral abscess K12.2 and Fungal rash of trunk B36.9 [facility] [id number] [place] [address] 73387- 4678 Apr, [facility] [address] 83636- 4889 Mar, [facility] [address] [address] 5[address] Mar, [facility] [id number] [place] [address] 92553- 6842 Mar, COPD (chronic obstructive pulmonary disease) J44.9 [facility] [id number] [place] [address] 98522- 4053 Mar, Diabetes type 2, controlled E11.9 ; Arthritis M19.90 and Lumbago with sciatica, left side M54.42 [facility] [id number] [place] [address] 18695- 2354 Mar, Benign essential HTN I10 and Hyperlipidemia, mixed E78.2 [facility] [id number] [place] [address] 14441- 7719 Mar, Benign essential HTN I10 and Hyperlipidemia, mixed E78.2 [facility] [id number] [place] [address] 29193- 8218 December, COPD (chronic obstructive pulmonary disease) J44.9 [facility] [id number] [place] [address] 57135- 3892 Oct, [facility] [id number] [place] [address] 26849- 1902 Sep, Hypertension, benign I10 and Diabetes type 2, controlled E11.9 [facility] [id number] [place] [address] 02644- 1900 Aug, [facility] [id number] [place] [address] 20220- 3033 Aug, Acute nasopharyngitis J00 [facility] [id number] [place] [address] 79582- 2584 Jun, [facility] [id number] [place] [address] 85757- 0693 Apr, [facility] [address] [place] [address]- 0085 Mar, [facility] [id number] [place] [address] 01824- 4202 Nov, Type 2 diabetes mellitus without complications E11.9 ; COPD (chronic obstructive pulmonary disease) J44.9 ; Coronary artery disease involving [place] heart without angina pectoris, unspecified vessel or lesion type I25.10 and Arthritis M19.90 [place] [address] 15482- 4099 Oct, CAD (coronary artery disease) I25.10 ; Chronic systolic heart failure I50.22 ; Benign essential HTN I10 and Hyperlipidemia, mixed E78.2 [place] [address] 82343- 6555 Sep, [place] [address] 81094- 4219 Sep, [place] [address] 89362- 1197 Jul, [facility] [id number] [place] [address] 85512- 2545 Jun, Granuloma annulare L92.0 [place] [id number] [place] [address] 00582- 0545 Mar, Diabetes 250.00 and Arthritis 716.90 [facility] [id number] [place] [address] [id number] Mar, Dental examination V72.2 [facility] [id number] [place] [address] 59107- 9301 Feb, [facility] [address] 33712- 4876 Feb, Diabetes 250.00 [facility] [id number] [place] [address] 02599- 0248 December, Diabetes mellitus 250.00 and Arthritis 716.90 [place] [id number] [place] [address] 3776 14 Nov, 2014 [facility] [place] [facility] [address] [id number] [place] [address] 3023 Nov, [facility] [place] [facility] [address] [id number] [place] [address]- 3637 Jun, [facility] [place] [facility] [address] [id number] [place] [address]- 1708 Jun, [facility] [place] [facility] [address] [id number] [place] [address]- 9463 May, [facility] [place] [facility] [address] [id number] [place] 1851 May, [facility] [place] [facility] [address] [id number] [place] [address]- 3840 May, [facility] [place] [facility] [address] [id number] [place] [address]- 9530 May, [facility] [place] [facility] [address] [id number] [place] [address]- 9595 May, [facility] [place] [facility] [address] [id number] [place] [address]- 4158 May, [facility] [place] [facility] [address] [id number] [place] [address]- 0452 May, [facility] [place] [facility] [address] [id number] [place] [address]- 3064 May, [facility] [place] [facility] [address] [id number] [place] [address]- 0807 Mar, [facility] [place] [facility] [address] [id number] [place] [address]- 9048 Mar, [facility] [place] [facility] [address] [id number] [place] [address]- 8554 Mar, [facility] [place] [facility] [address] [id number] [place] 7064 Mar, [facility] [place] [facility] [address] [id number] [place] [address]- 4454 Jan, [facility] [place] [facility] [address] [id number] [place] [address]- 1794 Jan, [facility] [place] [facility] [address] [id number] [place] [address]- 9376 Nov, [facility] [place] [facility] [address] [id number] [place] [address]- 3507 Nov, [facility] [place] [facility] [address] [id number] [place] [address]- 1015 Nov, [facility] [place] [facility] [address] [id number] [place] [address]- 8974 Nov, [facility] [place] [facility] [address] [id number] [place] [address]- 1923 Nov, [facility] [place] [facility] [address] [id number] [place] [address]- 3949 Nov, [facility] [place] [facility] [address] [id number] [place] [address]- 0002 Aug, [facility] [place] [facility] [address] [id number] [place] [address]- 6417 Aug, [facility] [place] [facility] [address] [id number] [place] [address]- 8141 Apr, [facility] [place] [facility] [address] [id number], [place] [address]- 0549 14 Apr, 2013 [facility] [place] [facility] [address] [id number] [place] [address]- 0596 06 Apr, 2013 [facility] [place] [facility] [address] [id number] [place] [address]- 4721 Jan, [facility] [place] [facility] [address] [id number] [place] [address]- 7175 05 Jan, 2013 [facility] [place] [facility] [address] [id number], [place] [address]- 9041 December, [facility] [place] [facility] [address] [id number] [place] [address]- 7393 Sep, [facility] [place] [facility] [address] [id number] [place] [address]- 0096 Sep, [facility] [place] [facility] [address] [facility] [id number] [place] [address]- 8155 Aug, [facility] [place] [facility] [address] [id number] [place] [address]- 7738 Jul, [facility] [place] [facility] [address] [id number] [place] 8995 Jul, [facility] [place] [facility] [address] [id number] [place] [address]- 0172 Jul, [facility] [address] [facility] [id number] [place] [address]- 0084 Jul, [facility] [place] [facility] [address] [id number] [place] [address]- 6658 Jun, [facility] [place] [facility] [address] [id number] [place] [address]- 3438 Jun, [facility] [place] [facility] [address] [facility] [id number] [place] [address]- 2670 Jun, [facility] [place] [facility] [address] [id number] [place] [address]- 6425 Jun, [facility] [place] [facility] [address] [id number], [place] [address]- 7527 Jun, [facility] [place] [facility] [address] [id number] [place] [address]- 9051 Jun, [facility] [place] [facility] [address] [facility] [id number] [place] [address]- 8923 May, [facility] [place] [facility] [address] [facility] [id number], [place] [address]- 6828 May, [facility] [place] [facility] [address], [place] [address]- 7111 Jan, [facility] [address], [place] [address]- 4429 Jan, [facility] [address], [place] [address]- 3559 Jan, [facility] [address] [place] [address] 08166- 1551 December, [facility] [address], [place] [address]- 5998 Sep, [facility] [id number] [place] [address] 97983- 3071 Jun, [facility] [id number] [address]- 2017 Jun, [facility] [address], [place] [address]- 7349 Apr, [facility] [address], [place] [address]- 2967 14 Apr, 2009 IMMUNIZATIONS No Known Immunizations SOCIAL HISTORY Never Assessed REASON FOR VISIT Upper left tooth abcess started last night JStrasserRN, Rash that has been treated before but is not gone PLAN OF CARE Activity Details Follow Up prn Reason: VITAL SIGNS Height 67 in 2017-04-30 Weight 196.2 lbs 2017-04-30 Temperature 98.0 degrees Fahrenheit 2017-04-30 Heart Rate 62 bpm 2017-04-30 Respiratory Rate 20 2017-04-30 BMI 30.73 kg/m2 2017-04-30 Blood pressure systolic 132 mmHg 2017-04-30 Blood pressure diastolic 90 mmHg 2017-04-30 MEDICATIONS Medication Instructions Dosage Frequency Start Date End Date Duration Status Naproxen 500 mg Orally every 12 hrs 1 tablet as needed 12h Mar, Active Lipitor 20 MG Orally Once a day 1 tablet 24h Active Fish Oil 1000 MG Orally twice a day 1 capsule 12h Active ProAir HFA 108 (90 Base) MCG/ACT Inhalation every 4 hrs 2 puffs as needed 4h 30 days Active Triamcinolone Acetonide 0.1 % Externally Twice a day 1 application to affected area 12h Jun, Active Amoxicillin 500 MG Orally every 8 hrs 1 capsule 8h Apr, Apr, 7 days Active Blood Glucose Monitor Blood Glucose test blood sugar 12h Feb, Active Metoprolol Tartrate 50 mg TAKE ONE TABLET BY MOUTH TWICE DAILY WITH MEALS 30 Active Metformin HCl 1000 MG TAKE ONE TABLET BY MOUTH TWICE DAILY WITH MEALS 30 Active Terbinafine HCl 250 MG Orally Once a day 1 tablet 24h Apr,Apr 10 day(s) Active Enalapril Maleate 5 mg 1 tablet by Oral route 2 times per day Mar, Active Aspirin 81 MG Orally Once a day 1 tablet 24h Active Neurontin 300 MG TAKE ONE CAPSULE BY MOUTH THREE TIMES DAILY FOR SHINGLES RELATED NEUROPATHY 30 Active RESULTS No Results PROCEDURES No Known [...]
--- OUTSIDE RECORDS SUMMARY | 2018-05-28 06:50 | XMS REPORT ---
Author Author KIYA BIGGS Organization [facility] Address [address] [place] [address] Care Team Providers Care Clinical Services Manager Name Role Phone KIYA BIGGS Unavailable PROBLEMS Type Condition ICD9-CM Code XWQ36-PV Code Onset Dates Condition Status SNOMED Code Problem Mixed hyperlipidemia E78.2 Active 809098218 Problem Hypertension, benign I10 Active 18620349 Problem Coronary artery disease involving ey[place] heart without angina pectoris , unspecified vessel or lesion type I25.10 Active 17488750 Problem Benign essential HTN I10 Active 96547533 Problem Hyperlipidemia, mixed E78.2 Active 903328918 Problem Diabetes type 2, controlled E11.9 Active 13939923 Problem COPD (chronic obstructive pulmonary disease) J44.9 Active 83417123 Problem Arthritis M19.90 Active 3295246 Problem Lumbago with sciatica, left side M54.42 Active 521512206 ALLERGIES No Information ENCOUNTERS Encounter Location Date Diagnosis [place] [id number] [address]- [address] Nov, Diabetes type 2, controlled E11.9 and Hypertension, benign I10 [facility] [id number] [place] [address] 58470- 8988 Sep, [facility] [id number] [place] [address] 00273- 7802 Jun, [facility] [address] [address] -5833 Apr, Oral abscess K12.2 and Fungal rash of trunk B36.9 [facility] [address] 66861- 4989 Apr, [facility] [address] 27329- 0695 Mar, [facility] [address], [place] [address]- 1495 Mar, [facility] [id number] [place] [address] 77399- 8614 Mar, COPD (chronic obstructive pulmonary disease) J44.9 [facility] [id number] [place] [address] 43150- 0219 Mar, Diabetes type 2, controlled E11.9 ; Arthritis M19.90 and Lumbago with sciatica, left side M54.42 [facility] [id number] [place] [address] 58944- 4690 Mar, Benign essential HTN I10 and Hyperlipidemia, mixed E78.2 [facility] [id number] [place] [address] 86322- 0498 Mar, Benign essential HTN I10 and Hyperlipidemia, mixed E78.2 [facility] [id number] [place] [address] 98395- 4162 December, COPD (chronic obstructive pulmonary disease) J44.9 [facility] [id number] [place] [address] 93763- 4946 Oct, [facility] [id number] [place] [address] 92581- 8955 Sep, Hypertension, benign I10 and Diabetes type 2, controlled E11.9 [facility] [id number] [place] [address] 16422- 6316 Aug, [facility] [id number] [place] [address] 64287- 1262 Aug, Acute nasopharyngitis J00 [facility] [id number] [place] [address] 99218- 8083 Jun, [facility] [id number] [place] [address] 86796- 0913 Apr, [facility] [id number] [place] [address] 72663- 9291 Mar, [facility] [id number] [place] [address] 05692- 5409 Nov, Type 2 diabetes mellitus without complications E11.9 ; COPD (chronic obstructive pulmonary disease) J44.9 ; Coronary artery disease involving eyak heart without angina pectoris, unspecified vessel or lesion type I25.10 and Arthritis M19.90 [place] [address] 06255- 8321 Oct, CAD (coronary artery disease) I25.10 ; Chronic systolic heart failure I50.22 ; Benign essential HTN I10 and Hyperlipidemia, mixed E78.2 [place] [address] 54817- 8786 Sep, [place] [address] 97099- 4920 Sep, [place] [address] 77569- 3059 Jul, [place] [id number] [place] [address] 48249- 0178 Jun, Granuloma annulare L92.0 [place] [address] 30489- 5823 Mar, Diabetes 250.00 and Arthritis 716.90 [facility] [id number] [place] [address] [id number] Mar, Dental examination V72.2 [place] [id number] [place] [address] 05786- 2064 Feb, [place] [address] 78805- 9165 Feb, Diabetes 250.00 [place] [id number] [place] [address] 21931- 8321 December, Diabetes mellitus 250.00 and Arthritis 716.90 [place] [address] [place] [address]- 4563 14 Nov, 2014 [facility] [place] [facility] [address] [id number] [place] [address]- 8368 13 Nov, 2014 [facility] [place] [facility] [address] [id number] [place] [address]- 1847 Jun, [facility] [place] [facility] [address] [id number] [place] [address]- 2663 Jun, [facility] [place] [facility] [address] [id number] [place] [address]- 7810 May, [facility] [place] [facility] [address] [id number] [place] [address]- 8235 May, [facility] [place] [facility] [address] [id number] [place] [address]- 6636 May, [facility] [place] [facility] [address] [id number] [place] [address]- 7833 May, [facility] [place] [facility] [address] [id number] [place] [address]- 5740 May, [facility] [place] [facility] [address] [id number] [place] [address]- 2904 May, [facility] [place] [facility] [address] [id number] [place] [address]- 0576 May, [facility] [place] [facility] [address] [id number] [place] [address]- 6422 May, [facility] [place] [facility] [address] [id number] [place] [address]- 9473 Mar, [facility] [place] [facility] [address] [id number] [place] [address]- 8061 Mar, [facility] [place] [facility] [address] [id number] [place] 4592 Mar, [facility] [place] [facility] [address] [id number] [place] [address]- 4574 Mar, [facility] [place] [facility] [address] [id number] [place] [address]- 8116 Jan, [facility] [place] [facility] [address] [id number] [place] [address]- 8366 Jan, [facility] [place] [facility] [address] [id number] [place] [address]- 6200 Nov, [facility] [place] [facility] [address] [id number] [place] [address]- 9825 Nov, [facility] [place] [facility] [address] [id number] [place] [address]- 6493 Nov, [facility] [place] [facility] [address] [id number] [place] [address]- 0855 Nov, [facility] [place] [facility] [address] [id number] [place] [address]- 1634 Nov, [facility] [place] [facility] [address] [id number] [place] [address]- 5727 Nov, [facility] [place] [facility] [address] [id number] [place] [address]- 7801 Aug, [facility] [place] [facility] [address] [id number] [place] [address]- 6915 Aug, [facility] [place] [facility] [address] [id number] [place] [address]- 9703 Apr, [facility] [place] [facility] [address] [id number] [place] [address]- 7292 14 Apr, 2013 [facility] [place] [facility] [address] [id number] [place] [address]- 9186 06 Apr, 2013 [facility] [place] [facility] [address] [id number] [place] [address]- 5095 25 Jan, 2013 [facility] [place] [facility] [address] [id number] [place] [address]- 6065 05 Jan, 2013 [facility] [place] [facility] [address] [id number] [place] [address]- 7532 December, [facility] [place] [facility] [address] [id number] [place] [address]- 9673 Sep, [facility] [place] [facility] [address] [id number] [place] [address]- 8090 Sep, [facility] [place] [facility] [address] [facility] [id number] [place] [address]- 3357 Aug, [facility] [place] [facility] [address] [id number] [place] 3335 Jul, [facility] [place] [facility] [address] [id number] [place] [address]- 8530 Jul, [facility] [place] [facility] [address] [id number] [place] [address]- 5236 Jul, [facility] [place] [facility] [address] [facility] [id number] [place] [address]- 1990 Jul, [facility] [place] [facility] [address] [id number], [place] [address] Jun, [facility] [place] [facility] [address] [id number], [place] [address] Jun, [facility] [place] [facility] [address] [id number] [place] [address] Jun, [facility] [place] [facility] [address] [id number], [place] [address] Jun, [facility] [place] [facility] [address] [id number], [place] [address] Jun, [facility] [place] [facility] [address] [id number], [place] [address] Jun, [facility] [place] [facility] [address] [facility] [id number], [place] [address] May, [facility] [place] [facility] [address] [facility] [id number], [place] [address] May, [facility] [place] [facility] [address] [id number], [place] [address] 29 Jan, 2012 [facility] [address] [id number], [place] [address] Jan, [facility] [id number], [place] [address] 15 Jan, 2012 [facility] [id number], [place] [address] December, [facility] [id number], [place] [address] Sep, [facility] [id number] [place] [address] Jun, [facility] [id number], [place] [address] Jun, [facility] [id number], [place] [address] 13 Apr, 2010 [facility] [address] [id number], [place] [address] 14 Apr, 2009 IMMUNIZATIONS No Known Immunizations SOCIAL HISTORY Never Assessed REASON FOR VISIT med refill PLAN OF CARE VITAL SIGNS MEDICATIONS Medication [...]
--- OUTSIDE RECORDS SUMMARY | 2018-05-28 06:50 | XMS REPORT ---
Author Author KIYA BIGGS Organization [facility] Address [address] [place] [address] Care Team Providers Care Collar Pointer Name Role Phone KIYA BIGGS Unavailable PROBLEMS Type Condition ICD9-CM Code SQI12-TV Code Onset Dates Condition Status SNOMED Code Problem Mixed hyperlipidemia E78.2 Active 311129512 Problem Hypertension, benign I10 Active 07820516 Problem Coronary artery disease involving havasupai heart without angina pectoris , unspecified vessel or lesion type I25.10 Active 98607912 Problem Benign essential HTN I10 Active 80551849 Problem Hyperlipidemia, mixed E78.2 Active 744973908 Problem Diabetes type 2, controlled E11.9 Active 83016578 Problem COPD (chronic obstructive pulmonary disease) J44.9 Active 76115012 Problem Arthritis M19.90 Active 3466526 Problem Lumbago with sciatica, left side M54.42 Active 491356265 ALLERGIES No Information ENCOUNTERS Encounter Location Date Diagnosis [place] [id number] [address]- [address] Nov, Diabetes type 2, controlled E11.9 and Hypertension, benign I10 [facility] [address] [place] [id number] [place] [address] 80012- 7177 Sep, [facility] [id number] [place] [address] 49542- 7339 Jun, [facility] [address] [address] -[address] Apr, Oral abscess K12.2 and Fungal rash of trunk B36.9 [facility] [address] 57199- 4099 Apr, [facility] [address] 58120- 9516 Mar, [facility] [address] [address]65 Mar, [facility] [id number] [place] [address] 90156- 7233 Mar, COPD (chronic obstructive pulmonary disease) J44.9 [facility] [id number] [place] [address] 34724- 1075 Mar, Diabetes type 2, controlled E11.9 ; Arthritis M19.90 and Lumbago with sciatica, left side M54.42 [facility] [id number] [place] [address] 48210- 1055 Mar, Benign essential HTN I10 and Hyperlipidemia, mixed E78.2 [facility] [id number] [place] [address] 26982- 8609 Mar, Benign essential HTN I10 and Hyperlipidemia, mixed E78.2 [facility] [id number] [place] [address] 37703- 5486 December, COPD (chronic obstructive pulmonary disease) J44.9 [facility] [id number] [place] [address] 45774- 2249 Oct, [facility] [id number] [place] [address] 32073- 3249 Sep, Hypertension, benign I10 and Diabetes type 2, controlled E11.9 [facility] [id number] [place] [address] 69946- 2660 Aug, [facility] [id number] [place] [address] 50156- 1767 Aug, Acute nasopharyngitis J00 [facility] [id number] [place] [address] 16915- 9056 Jun, [facility] [id number] [place] [address] 52169- 3281 Apr, [facility] [id number] [place] [address] 98510- 9768 Mar, [facility] [address] [place] [address] [id number] [place] [address] 04508- 2154 Nov, Type 2 diabetes mellitus without complications E11.9 ; COPD (chronic obstructive pulmonary disease) J44.9 ; Coronary artery disease involving havasupai heart without angina pectoris, unspecified vessel or lesion type I25.10 and Arthritis M19.90 [place] [address] 19546- 2773 Oct, CAD (coronary artery disease) I25.10 ; Chronic systolic heart failure I50.22 ; Benign essential HTN I10 and Hyperlipidemia, mixed E78.2 [place] [address] 98440- 5395 Sep, [place] [address] 32306- 4526 Sep, [place] [address] 03839- 7997 Jul, [place] [address] [place] [id number] [place] [address] 04885- 1785 Jun, Granuloma annulare L92.0 [place] [address] 81434- 9097 Mar, Diabetes 250.00 and Arthritis 716.90 [facility] [place] [facility] [address] [place] [id number] [place] [address] [id number] Mar, Dental examination V72.2 [place] [address] [place] [id number] [place] [address] 49272- 4203 Feb, [place] [address] 22844- 7734 Feb, Diabetes 250.00 [place] [address] [place] [id number] [place] [address] 97661- 5613 December, Diabetes mellitus 250.00 and Arthritis 716.90 [place] [address] [place] [address]- 4065 14 Nov, 2014 [facility] [place] [facility] [address] [id number] [place] [address]- 0542 13 Nov, 2014 [facility] [place] [facility] [address] [id number] [place] [address]- 0747 Jun, [facility] [place] [facility] [address] [id number] [place] [address]- 1858 Jun, [facility] [place] [facility] [address] [id number] [place] [address]- 3028 May, [facility] [place] [facility] [address] [id number] [place] [address]- 5184 May, [facility] [place] [facility] [address] [id number] [place] [address]- 6031 May, [facility] [place] [facility] [address] [id number] [place] [address]- 0531 May, [facility] [place] [facility] [address] [id number] [place] [address]- 2198 May, [facility] [place] [facility] [address] [id number] [place] [address]- 6775 May, [facility] [place] [facility] [address] [id number] [place] [address]- 0432 May, [facility] [place] [facility] [address] [id number] [place] [address]- 5181 May, [facility] [place] [facility] [address] [id number] [place] [address]- 8776 Mar, [facility] [place] [facility] [address] [id number] [place] [address]- 9396 Mar, [facility] [place] [facility] [address] [id number] [place] 1190 Mar, [facility] [place] [facility] [address] [id number] [place] [address]- 1622 Mar, [facility] [place] [facility] [address] [id number] [place] [address]- 8310 Jan, [facility] [place] [facility] [address] [id number] [place] [address]- 7822 Jan, [facility] [place] [facility] [address] [id number] [place] [address]- 0295 Nov, [facility] [place] [facility] [address] [id number] [place] [address]- 5439 Nov, [facility] [place] [facility] [address] [id number] [place] [address]- 6025 Nov, [facility] [place] [facility] [address] [id number] [place] [address]- 9101 Nov, [facility] [place] [facility] [address] [id number] [place] [address]- 8606 Nov, [facility] [place] [facility] [address] [id number] [place] [address]- 7459 Nov, [facility] [place] [facility] [address] [id number] [place] [address]- 8998 Aug, [facility] [place] [facility] [address] [id number] [place] [address]- 3519 Aug, [facility] [place] [facility] [address] [id number] [place] [address]- 2136 Apr, [facility] [place] [facility] [address] [id number] [place] [address]- 8695 14 Apr, 2013 [facility] [place] [facility] [address] [id number] [place] [address]- 4712 06 Apr, 2013 [facility] [place] [facility] [address] [id number] [place] [address]- 1340 25 Jan, 2013 [facility] [place] [facility] [address] [id number] [place] [address]- 9057 05 Jan, 2013 [facility] [place] [facility] [address] [id number] [place] [address]- 6623 December, [facility] [place] [facility] [address] [id number] [place] [address]- 8107 Sep, [facility] [place] [facility] [address] [id number] [place] [address]- 6700 Sep, [facility] [place] [facility] [address] [facility] [id number] [place] [address]- 0487 Aug, [facility] [place] [facility] [address] [id number] [place] 4937 Jul, [facility] [place] [facility] [address] [id number] [place] [address]- 3281 Jul, [facility] [place] [facility] [address] [id number] [place] [address]- 3720 Jul, [facility] [place] [facility] [address] [facility] [id number] [place] [address]- 2810 Jul, [facility] [place] [facility] [address] [id number], [place] [address]- 1883 Jun, [facility] [place] [facility] [address] [id number], [place] [address]- 5234 Jun, [facility] [place] [facility] [address] [id number] [place] [address]- 3610 Jun, [facility] [place] [facility] [address] [id number], [place] [address]- 5894 Jun, [facility] [place] [facility] [address] [id number], [place] [address]- 1717 Jun, [facility] [place] [facility] [address] [id number], [place] [address]- 3471 Jun, [facility] [place] [facility] [address] [facility] [id number], [place] [address]- 6501 May, [facility] [place] [facility] [address] [facility] [id number], [place] [address]- 3402 May, [facility] [place] [facility] [address] [place] [id number] [address] 29 Jan, 2012 [facility] [address] [place] [address] [id number] 1701 Jan, [facility] [address] 2130 Jan, [facility] [address], [place] [address]- 8524 December, [facility] [address], [place] [address]- 7682 Sep, [facility] [id number] [place] [address] 36171- 4536 Jun, [facility] [address] 1344 Jun, [facility] [address] 6601 13 Apr, 2010 [facility] [address] [place] [address] [id number] [address]- 5163 14 Apr, 2009 IMMUNIZATIONS No Known Immunizations SOCIAL HISTORY Never Assessed REASON FOR VISIT Requests return call PLAN OF CARE VITAL SIGNS MEDICATIONS No Known Medications RESULTS No Results PROCEDURES No Known [...]
--- OUTSIDE RECORDS SUMMARY | 2018-05-28 06:50 | XMS REPORT ---
Author Author KIYA BIGGS Organization [facility] Address [address] [place] [address] Care Team Providers Care Floor Cashier Name Role Phone KIYA BIGGS Unavailable PROBLEMS Type Condition ICD9-CM Code RCU15-VI Code Onset Dates Condition Status SNOMED Code Problem Mixed hyperlipidemia E78.2 Active 024525181 Problem Hypertension, benign I10 Active 45607006 Problem Coronary artery disease involving upper sioux heart without angina pectoris , unspecified vessel or lesion type I25.10 Active 71681003 Problem Benign essential HTN I10 Active 76204305 Problem Hyperlipidemia, mixed E78.2 Active 751070786 Problem Diabetes type 2, controlled E11.9 Active 56196625 Problem COPD (chronic obstructive pulmonary disease) J44.9 Active 42393829 Problem Arthritis M19.90 Active 8101587 Problem Lumbago with sciatica, left side M54.42 Active 763365843 ALLERGIES No Known Allergies ENCOUNTERS Encounter Location Date Diagnosis [place] [address] [address]- 8561 Nov, Diabetes type 2, controlled E11.9 and Hypertension, benign I10 [facility] [address] [place] [address] [id number] [place] [address] 84890- 1245 Sep, [facility] [address] [place] [id number] [place] [address] 25767- 0513 Jun, [facility] [address] 75371 -0413 Apr, Oral abscess K12.2 and Fungal rash of trunk B36.9 [facility] [address] 82278- 5660 Apr, [facility] [address] 30452- 3673 Mar, [facility] [id number] [place] [address] 72014- 7616 Mar, [facility] [address] [id number] [place] [address] 29301- 6838 Mar, COPD (chronic obstructive pulmonary disease) J44.9 [facility] [address] [id number] [place] [address] 56837- 3329 Mar, Diabetes type 2, controlled E11.9 ; Arthritis M19.90 and Lumbago with sciatica, left side M54.42 [facility] [id number] [place] [address] 38951- 2470 Mar, Benign essential HTN I10 and Hyperlipidemia, mixed E78.2 [facility] [id number] [place] [address] 06988- 1119 Mar, Benign essential HTN I10 and Hyperlipidemia, mixed E78.2 [facility] [id number] [place] [address] 45285- 9005 December, COPD (chronic obstructive pulmonary disease) J44.9 [facility] [id number] [place] [address] 96091- 1615 Oct, [facility] [id number] [place] [address] 87593- 5700 Sep, Hypertension, benign I10 and Diabetes type 2, controlled E11.9 [facility] [id number] [place] [address] 08064- 3816 Aug, [facility] [address] [place] [id number] [place] [address] 08731- 2127 Aug, Acute nasopharyngitis J00 [facility] [id number] [place] [address] 55436- 9538 Jun, [facility] [id number] [place] [address] 07706- 2605 Apr, [facility] [id number] [place] [address] 09404- 1743 Mar, [facility] [address] [place] [id number] [place] [address] 36179- 6712 Nov, Type 2 diabetes mellitus without complications E11.9 ; COPD (chronic obstructive pulmonary disease) J44.9 ; Coronary artery disease involving upper sioux heart without angina pectoris, unspecified vessel or lesion type I25.10 and Arthritis M19.90 [place] [address] 03338- 0286 Oct, CAD (coronary artery disease) I25.10 ; Chronic systolic heart failure I50.22 ; Benign essential HTN I10 and Hyperlipidemia, mixed E78.2 [place] [address] 36701- 8698 Sep, [place] [address] 81296- 4597 Sep, [place] [address] 08405- 7086 Jul, [facility] [address] [place] [id number] [place] [address] 58559- 8845 Jun, Granuloma annulare L92.0 [place] [address] [place] [id number] [place] [address] 87748- 9812 Mar, Diabetes 250.00 and Arthritis 716.90 [facility] [id number] [place] [address] [id number] Mar, Dental examination V72.2 [place] [address] [place] [id number] [place] [address] 08163- 3671 Feb, [place] [address] 51045- 6023 Feb, Diabetes 250.00 [facility] [address] [place] [id number] [place] [address] 89757- 2243 December, Diabetes mellitus 250.00 and Arthritis 716.90 [place] [address] [place] [address]- 0414 14 Nov, 2014 [facility] [place] [facility] [address] [id number] [place] [address]- 0773 13 Nov, 2014 [facility] [place] [facility] [address] [id number] [place] [address]- 9377 Jun, [facility] [place] [facility] [address] [id number] [place] [address]- 0481 Jun, [facility] [place] [facility] [address] [id number] [place] [address]- 6701 May, [facility] [place] [facility] [address] [id number] [place] [address]- 2824 May, [facility] [place] [facility] [address] [id number] [place] [address]- 0790 May, [facility] [place] [facility] [address] [id number] [place] [address]- 7852 May, [facility] [place] [facility] [address] [id number] [place] [address]- 0322 May, [facility] [place] [facility] [address] [id number] [place] [address]- 6699 May, [facility] [place] [facility] [address] [id number] [place] [address]- 1408 May, [facility] [place] [facility] [address] [id number] [place] [address]- 0401 May, [facility] [place] [facility] [address] [id number] [place] [address]- 3264 Mar, [facility] [place] [facility] [address] [id number] [place] [address]- 8613 Mar, [facility] [place] [facility] [address] [id number] [place] 6683 Mar, [facility] [place] [facility] [address] [id number] [place] [address]- 7232 Mar, [facility] [place] [facility] [address] [id number] [place] [address]- 3697 Jan, [facility] [place] [facility] [address] [id number] [place] [address]- 2441 Jan, [facility] [place] [facility] [address] [id number] [place] [address]- 9024 Nov, [facility] [place] [facility] [address] [id number] [place] [address]- 0199 Nov, [facility] [place] [facility] [address] [id number] [place] [address]- 1566 Nov, [facility] [place] [facility] [address] [id number] [place] [address]- 8476 Nov, [facility] [place] [facility] [address] [id number] [place] [address]- 9761 Nov, [facility] [place] [facility] [address] [id number] [place] [address]- 3700 Nov, [facility] [place] [facility] [address] [id number] [place] [address]- 1212 Aug, [facility] [place] [facility] [address] [id number] [place] [address]- 8299 Aug, [facility] [place] [facility] [address] [id number] [place] [address]- 2629 Apr, [facility] [place] [facility] [address] [id number] [place] [address]- 5500 14 Apr, 2013 [facility] [place] [facility] [address] [id number] [place] [address]- 1894 06 Apr, 2013 [facility] [place] [facility] [address] [id number] [place] [address]- 2769 25 Jan, 2013 [facility] [place] [facility] [address] [id number] [place] [address]- 8616 05 Jan, 2013 [facility] [place] [facility] [address] [id number] [place] [address]- 1076 December, [facility] [place] [facility] [address] [id number] [place] [address] Sep, [facility] [place] [facility] [address] [id number] [place] [address]- 4786 Sep, [facility] [place] [facility] [address] [id number] [place] [address]- 2012 Aug, [facility] [place] [facility] [address] [id number] [place] [address]- 7375 Jul, [facility] [place] [facility] [address] [id number] [place] 3874 Jul, [facility] [place] [facility] [address] [id number] [place] [address]- 9198 Jul, [facility] [place] [facility] [address] [id number] [place] [address]- 1673 Jul, [facility] [place] [facility] [address] [id number] [place] [address]- 4563 Jun, [facility] [place] [facility] [address] [id number] [place] [address]- 0699 Jun, [facility] [place] [facility] [address] [id number] [place] [address]- 1260 Jun, [facility] [place] [facility] [address] [id number], [place] [address]- 2870 Jun, [facility] [place] [facility] [address] [id number], [place] [address]- 0611 Jun, [facility] [place] [facility] [address] [id number] [place] [address]- 7054 Jun, [facility] [place] [facility] [address] [id number] [place] [address]- 9877 May, [facility] [place] [facility] [address] [id number] [place] [address]- 1326 May, [facility] [place] [facility] [address] [id number], [place] [address]- 9256 Jan, [facility] [address] [id number] [address]- 2636 Jan, [facility] [address], [place] [address]- 3606 Jan, [facility] [address], [place] [address]- 3766 December, [facility] [address], [place] [address]- 4576 Sep, [facility] [address], [place] [address]- 2835 Jun, [facility] [address], [place] [address]- 7786 Jun, [facility] [address], [place] [address]- 3319 Apr, [facility] [id number], [place] [address]- 9344 14 Apr, 2009 IMMUNIZATIONS No Known Immunizations SOCIAL HISTORY Never Assessed REASON FOR VISIT Blood Pressure, Med refills and PT has a concern about pain in the right ankle- [place], PT has also mentioned that he has been using his inhalor more often PLAN OF CARE VITAL SIGNS Height 67 in 2017-03-15 Weight 197.5 lbs 2017-03-15 Temperature 98.2 degrees Fahrenheit 2017-03-15 Heart Rate 60 bpm 2017-03-15 Respiratory Rate 18 2017-03-15 BMI 30.93 kg/m2 2017-03-15 Blood pressure systolic 118 mmHg 2017-03-15 Blood pressure diastolic 82 mmHg 2017-03-15 MEDICATIONS Medication Instructions Dosage Frequency Start Date End Date Duration Status PredniSONE 20 mg Orally Once a day 2 tablets 24h Mar, Mar, 05 days Active Naproxen 500 mg Orally every 12 hrs 1 tablet as needed 12h Mar, Active Enalapril Maleate 5 mg 1 tablet by Oral route 2 times per day Mar, Active Metformin HCl 1000 MG TAKE ONE TABLET BY MOUTH TWICE DAILY WITH MEALS 30 Active Blood Glucose Monitor Blood Glucose test blood sugar 12h 27 Feb, 2015 Active Lipitor 20 MG Orally Once a day 1 tablet 24h Active Metoprolol Tartrate 50 mg TAKE ONE TABLET BY MOUTH TWICE DAILY WITH MEALS 30 Active Aspirin 81 MG Orally Once a day 1 tablet 24h Active Fish Oil 1000 MG Orally twice a day 1 capsule 12h Active ProAir HFA 108 (90 Base) MCG/ACT Inhalation every 4 hrs 2 puffs as needed 4h 30 days Active Neurontin 300 MG TAKE ONE CAPSULE BY MOUTH THREE TIMES DAILY FOR SHINGLES RELATED NEUROPATHY 30 Active RESULTS No Results PROCEDURES Procedure Date Ordered Result Body Site GLYCATED HEMOGLOBIN TEST Mar 15, 2017 INSTRUCTIONS MEDICATIONS ADMINISTERED No Known [...]
--- OUTSIDE RECORDS SUMMARY | 2018-05-28 06:50 | XMS REPORT ---
Author RADHA Agrawal [facility] eClinicalWorks Address Unknown Phone Unavailable Care Team Providers Care Detective Precinct Name Role Phone RADHA PAYNE CP Unavailable Allergies No Known Allergies Problems Problem Type Condition Code Onset Dates Condition Status Problem Hypertension, benign I10 Active Problem Coronary artery disease involving [place] heart without angina pectoris , unspecified vessel or lesion type I25.10 Active Problem COPD (chronic obstructive pulmonary disease) J44.9 Active Problem Mixed hyperlipidemia E78.2 Active Problem Diabetes type 2, controlled E11.9 Active Medications Medication Code System Code Instructions Start Date End Date Status Dosage Metformin HCl [facility] [id number] 1,000 Orally Twice a day 1 tablet with meals Results No Known Results Summary Purpose eClinicalWorks Submission
--- OUTSIDE RECORDS SUMMARY | 2018-05-28 06:51 | XMS REPORT ---
Author KIYA Sigala Organization eClinicalWorks Address Unknown Phone Unavailable Care Team Providers Care Bladder Changer Name Role Phone KIYA BIGGS CP Unavailable Allergies No Known Allergies Problems Problem Type Condition Code Onset Dates Condition Status Problem Hypertension, benign I10 Active Problem Coronary artery disease involving [place] heart without angina pectoris , unspecified vessel or lesion type I25.10 Active Problem COPD (chronic obstructive pulmonary disease) J44.9 Active Problem Mixed hyperlipidemia E78.2 Active Problem Diabetes type 2, controlled E11.9 Active Medications Medication Code System Code Instructions Start Date End Date Status Dosage ProAir HFA [facility] [address]-16 108 (90 Base) MCG/ACT Inhalation every 4 hrs 2 puffs as needed Metoprolol Tartrate [facility] [address]-34 50 mg TAKE ONE TABLET BY MOUTH TWICE DAILY WITH MEALS Results No Known Results Summary Purpose eClinicalWorks Submission
--- OUTSIDE RECORDS SUMMARY | 2018-05-28 06:51 | XMS REPORT ---
Author KIYA Sigala [facility] eClinicalWorks Address Unknown Phone Unavailable Care Team Providers Care Research Coordinator Name Role Phone KIYA BIGGS CP Unavailable Allergies, Adverse Reactions, Alerts Substance Reaction Event Type N.K.D.A. Info Not Available Non Drug Allergy Problems Problem Type Condition ICD-9 Code Onset Dates Condition Status Problem Coronary atherosclerosis of unspecified type of vessel, [place] or graft 414.00 Active Problem Unspecified pruritic disorder 698.9 Active Problem Herpes zoster without mention of complication 053.9 Active Problem Chronic airway obstruction, not elsewhere classified 496 Active Problem Counseling on substance use and abuse V65.42 Active Problem Diabetes 250.00 Active Problem Rash and other nonspecific skin eruption 782.1 Active Problem Other atopic dermatitis and related conditions 691.8 Active Problem Essential hypertension, benign 401.1 Active Problem Candidiasis of other urogenital sites 112.2 Active Assessment Arthritis 716.90 Active Assessment Diabetes 250.00 Active Problem Other and unspecified hyperlipidemia 272.4 Active Medications Medication Code System Code Instructions Start Date End Date Status Dosage Metformin HCl [facility] [address]-16 1000 MG Orally Twice a day December 31, 2014 1 tablet with meals ProAir HFA [facility] [address]-81 90 mcg/actuation Sep 16, 2012 2 puffs by Inhalation route 4 times per day for 30 day(s) Ibuprofen [facility] [address]-90 600 MG Orally every 6 hrs 1 tablet as needed Aspirin [facility] [address]-55 81 MG Orally Once a day 1 tablet Metoprolol Tartrate [facility] [address]-45 50 mg Mar 19, 2014 take 1 tablet (50 mg) by oral route 2 times per day with meals Blood Glucose Monitor [facility] 0 Blood Glucose 2 times a day March 07, 2015 test blood sugar Neurontin [facility] 27829772095 300 MG TAKE ONE CAPSULE BY MOUTH THREE TIMES DAILY FOR SHINGLES RELATED NEUROPATHY Enalapril Maleate [facility] [address]-10 5 mg Mar 19, 2014 1 tablet by Oral route 2 times per day Procedures Procedure Coding System Code Date Office Visit, Est Pt., Level 3 CPT-4 82247 Apr 11, 2015 Vital Signs Date/Time: Apr 11, 2015 Temperature 97.8 F Weight 198 lbs Height 67 in BMI 31.01 Index Blood Pressure Diastolic 82 mmHg Blood Pressure Systolic 126 mmHg Cardiac Monitoring Heart Rate 68 bpm Results No Known Results Summary Purpose eClinicalWorks Submission
--- OUTSIDE RECORDS SUMMARY | 2018-05-28 06:51 | XMS REPORT ---
Author Author KIYA BIGGS Organization [facility] Address [address] [place] [address] Care Team Providers Care Provider Enrollment Specialist Name Role Phone KIYA BIGGS Unavailable PROBLEMS Type Condition ICD9-CM Code MEH84-WH Code Onset Dates Condition Status SNOMED Code Problem Mixed hyperlipidemia E78.2 Active 293394229 Problem Hypertension, benign I10 Active 84596897 Problem Coronary artery disease involving [place] heart without angina pectoris , unspecified vessel or lesion type I25.10 Active 52585659 Problem Benign essential HTN I10 Active 31809788 Problem Hyperlipidemia, mixed E78.2 Active 189418580 Problem Diabetes type 2, controlled E11.9 Active 69559231 Problem COPD (chronic obstructive pulmonary disease) J44.9 Active 87849166 Problem Arthritis M19.90 Active 4568663 Problem Lumbago with sciatica, left side M54.42 Active 163395023 ALLERGIES No Information SOCIAL HISTORY Never Assessed PLAN OF CARE VITAL SIGNS MEDICATIONS Medication Instructions Dosage Frequency Start Date End Date Duration Status ProAir HFA 108 (90 Base) MCG/ACT Inhalation every 4 hrs 2 puffs as needed 4h Active RESULTS No Results PROCEDURES No Known [...]
--- OUTSIDE RECORDS SUMMARY | 2018-05-28 06:51 | XMS REPORT ---
Author Author KIYA BIGGS [facility] Address [address] [place] [address] Care Team Providers Care Flyer Repairer Name Role Phone KIYA BIGGS Unavailable PROBLEMS Type Condition ICD9-CM Code TDQ42-HC Code Onset Dates Condition Status SNOMED Code Problem COPD (chronic obstructive pulmonary disease) J44.9 Active 84161969 Problem Hypertension, benign I10 Active 99254812 Problem Diabetes type 2, controlled E11.9 Active 44214357 Problem Coronary artery disease involving [place] heart without angina pectoris , unspecified vessel or lesion type I25.10 Active 44479715 Problem Mixed hyperlipidemia E78.2 Active 601683831 ALLERGIES Unknown Allergies SOCIAL HISTORY No smoking Hx information available PLAN OF CARE VITAL SIGNS MEDICATIONS Medication Instructions Dosage Frequency Start Date End Date Duration Status ProAir HFA 108 (90 Base) MCG/ACT Inhalation every 4 hrs 2 puffs as needed 4h Active RESULTS No Results PROCEDURES No Known procedures IMMUNIZATIONS No Known Immunizations
--- OUTSIDE RECORDS SUMMARY | 2018-05-28 06:51 | XMS REPORT ---
Author Author KIYA BIGGS Organization [facility] Address [address] [place] [address] Care Team Providers Care Project Internship Name Role Phone KIYA BIGGS Unavailable PROBLEMS Type Condition ICD9-CM Code WSR17-ZD Code Onset Dates Condition Status SNOMED Code Problem Mixed hyperlipidemia E78.2 Active 967357642 Problem Hypertension, benign I10 Active 46301390 Problem Coronary artery disease involving [place] heart without angina pectoris , unspecified vessel or lesion type I25.10 Active 11228428 Problem Benign essential HTN I10 Active 98039313 Problem Hyperlipidemia, mixed E78.2 Active 700383537 Problem Diabetes type 2, controlled E11.9 Active 46498405 Problem COPD (chronic obstructive pulmonary disease) J44.9 Active 30058669 Problem Arthritis M19.90 Active 3351510 Problem Lumbago with sciatica, left side M54.42 Active 950177151 ALLERGIES No Information ENCOUNTERS Encounter Location Date Diagnosis [place] [id number] [address] Nov, Diabetes type 2, controlled E11.9 and Hypertension, benign I10 [facility] [address] [place] [id number] [place] [address]67- 1713 Sep, [facility] [id number] [place] [address]- [address] Jun, [facility] [address] [address] Apr, Oral abscess K12.2 and Fungal rash of trunk B36.9 [facility] [address] [address] Apr, [facility] [address] [address] Mar, [facility] [address] [address] Mar, [facility] [id number] [place] [address]- 2217 Mar, COPD (chronic obstructive pulmonary disease) J44.9 [facility] [id number] [place] [address] 79449- 7668 Mar, Diabetes type 2, controlled E11.9 ; Arthritis M19.90 and Lumbago with sciatica, left side M54.42 [facility] [id number] [place] [address]- [address] Mar, Benign essential HTN I10 and Hyperlipidemia, mixed E78.2 [facility] [id number] [place] [address]781- 6742 Mar, Benign essential HTN I10 and Hyperlipidemia, mixed E78.2 [facility] [id number] [place] [address]- [address] December, COPD (chronic obstructive pulmonary disease) J44.9 [facility] [id number] [place] [address]- 8538 Oct, [facility] [id number] [place] [address]29- 3984 Sep, Hypertension, benign I10 and Diabetes type 2, controlled E11.9 [facility] [id number] [place] [address]387- 3561 Aug, [facility] [id number] [place] [address] 48488- 9196 Aug, Acute nasopharyngitis J00 [facility] [id number] [place] [address] 18241- 9734 Jun, [facility] [id number] [place] [address] 24358- 3065 Apr, [facility] [id number] [place] [address] 81102- 6986 Mar, [facility] [id number] [place] [address]- 2787 Nov, Type 2 diabetes mellitus without complications E11.9 ; COPD (chronic obstructive pulmonary disease) J44.9 ; Coronary artery disease involving [place] heart without angina pectoris, unspecified vessel or lesion type I25.10 and Arthritis M19.90 [place] [address] [address] Oct, CAD (coronary artery disease) I25.10 ; Chronic systolic heart failure I50.22 ; Benign essential HTN I10 and Hyperlipidemia, mixed E78.2 [place] [address] [address] Sep, [place] [address] [address] Sep, [place] [address] [address] Jul, [place] [address] [id number] [place] [address]- [address] Jun, Granuloma annulare L92.0 [place] [address] [address]- [address] Mar, Diabetes 250.00 and Arthritis 716.90 [facility] [address] [id number] [place] [id number] Mar, Dental examination V72.2 [place] [address] [id number] [place] [address]80- 6809 Feb, [place] [address] [address] Feb, Diabetes 250.00 [place] [address] [id number] [place] [address] 30527- 0998 December, Diabetes mellitus 250.00 and Arthritis 716.90 [place] [address] [place] [address] 14 Nov, 2014 [facility] [place] [facility] [address] [id number] [place] [address] 13 Nov, 2014 [facility] [place] [facility] [address] [id number] [place] [address] 8727 Jun, [facility] [place] [facility] [address] [id number] [place] [address] 5405 Jun, [facility] [place] [facility] [address] [id number] [place] [address]- 9182 May, [facility] [place] [facility] [address] [id number] [place] [address]- 5148 May, [facility] [place] [facility] [address] [id number] [place] [address]- 2131 May, [facility] [place] [facility] [address] [id number] [place] [address]- 0566 May, [facility] [place] [facility] [address] [id number] [place] [address]- 7696 May, [facility] [place] [facility] [address] [id number] [place] [address]- 9274 May, [facility] [place] [facility] [address] [id number] [place] [address]- 7988 May, [facility] [place] [facility] [address] [id number] [place] [address]- 2367 May, [facility] [place] [facility] [address] [id number] [place] [address]- 1531 Mar, [facility] [place] [facility] [address] [id number] [place] [address]- 0064 Mar, [facility] [place] [facility] [address] [id number] [place] [address] Mar, [facility] [place] [facility] [address] [id number] [place] [address]- 4069 Mar, [facility] [place] [facility] [address] [id number] [place] [address]- 1216 Jan, [facility] [place] [facility] [address] [id number] [place] [address]- 3793 Jan, [facility] [place] [facility] [address] [id number] [place] [address]- 3388 Nov, [facility] [place] [facility] [address] [id number] [place] [address]- 0048 Nov, [facility] [place] [facility] [address] [id number] [place] [address]- 7749 Nov, [facility] [place] [facility] [address] [id number] [place] [address]- 1790 Nov, [facility] [place] [facility] [address] [id number] [place] [address]- 4913 Nov, [facility] [place] [facility] [address] [id number] [place] [address]- 6528 Nov, [facility] [place] [facility] [address] [id number] [place] [address]- 0774 Aug, [facility] [place] [facility] [address] [id number] [place] [address]- 2133 Aug, [facility] [place] [facility] [address] [id number] [place] [address]- 9313 Apr, [facility] [place] [facility] [address] [id number] [place] [address]- 0192 14 Apr, 2013 [facility] [place] [facility] [address] [id number] [place] [address]- 5283 06 Apr, 2013 [facility] [place] [facility] [address] [id number] [place] [address]- 0806 25 Jan, 2013 [facility] [place] [facility] [address] [id number] [place] [address]- 4494 05 Jan, 2013 [facility] [place] [facility] [address] [id number] [place] [address]- 6336 December, [facility] [place] [facility] [address] [id number] [place] [address]- 8674 Sep, [facility] [place] [facility] [address] [id number] [place] [address]- 7562 Sep, [facility] [place] [facility] [address] [facility] [id number] [place] [address]- 2105 Aug, [facility] [place] [facility] [address] [id number] [place] [address] Jul, [facility] [place] [facility] [address] [id number] [place] [address]- 8070 Jul, [facility] [place] [facility] [address] [id number] [place] [address]- 6103 Jul, [facility] [place] [facility] [address] [facility] [id number] [place] [address]- 6189 Jul, [facility] [place] [facility] [address] [id number], [place] [address]- 2649 Jun, [facility] [place] [facility] [address] [id number], [place] [address]- 5684 Jun, [facility] [place] [facility] [address] [id number] [place] [address]- 4327 Jun, [facility] [place] [facility] [address] [id number], [place] [address]- 9620 Jun, [facility] [place] [facility] [address] [id number], [place] [address]- 0945 Jun, [facility] [place] [facility] [address] [id number], [place] [address]- 6053 Jun, [facility] [place] [facility] [address] [facility] [id number], [place] [address]- 2899 May, [facility] [place] [facility] [address] [facility] [id number], [place] [address]- 7326 May, [facility] [place] [facility] [address] [address] [id number] [address]46 29 Jan, 2012 [facility] [address] [id number] [address] Jan, [facility] [address] [place] [address]- [address]266 Jan, [facility] [address], [place] [address]- 7945 December, [facility] [address], [place] [address]- 7146 Sep, [facility] [id number] [place] [address]- 5403 Jun, [facility] [address], [place] [address]- 8015 Jun, [facility] [address] [place] [address]- [address] 13 Apr, 2010 [facility] [id number] [address]- [address] 14 Apr, 2009 IMMUNIZATIONS No Known Immunizations SOCIAL HISTORY Never Assessed REASON FOR VISIT Lab (walk-in) PLAN OF CARE VITAL SIGNS MEDICATIONS No Known Medications RESULTS No Results PROCEDURES Procedure Date Ordered Result Body Site COMPLETE CBC W/AUTO DIFF WBC Mar 14, 2017 COMPREHEN METABOLIC PANEL Mar 14, 2017 VENIPUNCT, ROUTINE* Mar 14, 2017 LIPID PANEL Mar 14, 2017 INSTRUCTIONS MEDICATIONS ADMINISTERED No Known Medications [...]
--- OUTSIDE RECORDS SUMMARY | 2018-05-28 06:51 | XMS REPORT ---
Author RADHA Agrawal Organization [employer] Address Unknown Phone Unavailable Care Team Providers Care Supervising Film Or Videotape Editor Name Role Phone RADHA PAYNE CP Unavailable Allergies No Known Allergies Problems Problem Type Condition Code Onset Dates Condition Status Problem Hypertension, benign I10 Active Problem Coronary artery disease involving [place] heart without angina pectoris , unspecified vessel or lesion type I25.10 Active Problem COPD (chronic obstructive pulmonary disease) J44.9 Active Problem Mixed hyperlipidemia E78.2 Active Problem Diabetes type 2, controlled E11.9 Active Medications No Known Medications Results No Known Results Summary Purpose eClinical[employer] Submission
--- OUTSIDE RECORDS SUMMARY | 2018-05-28 06:51 | XMS REPORT ---
Author Author KIYA BIGGS Organization [facility] Address [address] [place] [address] Care Team Providers Care Regional Sales Representative Name Role Phone KIYA BIGGS Unavailable PROBLEMS Type Condition ICD9-CM Code [id number] Code Onset Dates Condition Status SNOMED Code Problem Mixed hyperlipidemia E78.2 Active 983593103 Problem Hypertension, benign I10 Active 05403328 Problem Coronary artery disease involving tazlina heart without angina pectoris , unspecified vessel or lesion type I25.10 Active 39541338 Problem Benign essential HTN I10 Active 29218905 Problem Hyperlipidemia, mixed E78.2 Active 178481068 Problem Diabetes type 2, controlled E11.9 Active 63575003 Problem COPD (chronic obstructive pulmonary disease) J44.9 Active 15143757 Problem Arthritis M19.90 Active 2277196 Problem Lumbago with sciatica, left side M54.42 Active [id number] ALLERGIES No Information ENCOUNTERS Encounter Location Date Diagnosis [place] [id number] [address] Nov, Diabetes type 2, controlled E11.9 and Hypertension, benign I10 [facility] [address] [place] [id number] [place] [address]- [address]655 Sep, [facility] [address] [place] [id number] [place] [address]50- 3731 Jun, [facility] [address] [address] Apr, Oral abscess K12.2 and Fungal rash of trunk B36.9 [facility] [address] [address] Apr, [facility] [address] [address] Mar, [facility] [id number] [address] Mar, [facility] [address] [place] [id number] [place] [address]55- 1070 Mar, COPD (chronic obstructive pulmonary disease) J44.9 [facility] [address] [place] [id number] [place] [address]2002- 4712 Mar, Diabetes type 2, controlled E11.9 ; Arthritis M19.90 and Lumbago with sciatica, left side M54.42 [facility] [address] [place] [id number] [place] [address] 63783- 6421 Mar, Benign essential HTN I10 and Hyperlipidemia, mixed E78.2 [facility] [address] [id number] [place] [address] 07344- 0770 Mar, Benign essential HTN I10 and Hyperlipidemia, mixed E78.2 [facility] [address] [place] [id number] [place] [address] 64258- 1437 December, COPD (chronic obstructive pulmonary disease) J44.9 [facility] [address] [id number] [place] [address] 08120- 0966 Oct, [facility] [address] [id number] [place] [address] 46745- 2824 Sep, Hypertension, benign I10 and Diabetes type 2, controlled E11.9 [facility] [address] [id number] [place] [address] 73357- 1566 Aug, [facility] [address] [place] [id number] [place] [address] 34389- 5222 Aug, Acute nasopharyngitis J00 [facility] [address] [place] [id number] [place] [address]33- 3029 Jun, [facility] [address] [place] [id number] [place] [address] 95576- 9503 Apr, [facility] [address] [id number] [place] [address] 89128- 4371 Mar, [facility] [address] [place] [id number] [place] [address] 34213- 3092 Nov, Type 2 diabetes mellitus without complications E11.9 ; COPD (chronic obstructive pulmonary disease) J44.9 ; Coronary artery disease involving tazlina heart without angina pectoris, unspecified vessel or lesion type I25.10 and Arthritis M19.90 [place] [address] [address]- [address] Oct, CAD (coronary artery disease) I25.10 ; Chronic systolic heart failure I50.22 ; Benign essential HTN I10 and Hyperlipidemia, mixed E78.2 [place] [address] [address]- [address] Sep, [place] [address] [address]- [address]99 Sep, [place] [address] [address] Jul, [place] [address] [place] [id number] [place] [address] 77972- 5673 Jun, Granuloma annulare L92.0 [place] [address] 60[address]- 9135 Mar, Diabetes 250.00 and Arthritis 716.90 [facility] [address] [place] [id number] [place] [id number] Mar, Dental examination V72.2 [place] [address] [place] [id number] [place] [address] 59392- 5664 Feb, [place] [address] [address]- 9461 Feb, Diabetes 250.00 [place] [address] [place] [id number] [place] [address] 49010- 5702 December, Diabetes mellitus 250.00 and Arthritis 716.90 [place] [address] [place] [address]- 2050 14 Nov, 2014 [facility] [place] [facility] [address] [id number] [place] [address]- 2031 13 Nov, 2014 [facility] [place] [facility] [address] [id number] [place] [address]- 0624 Jun, [facility] [place] [facility] [address] [id number] [place] [address]- 7883 Jun, [facility] [place] [facility] [address] [id number] [place] [address]- 4019 May, [facility] [place] [facility] [address] [id number] [place] [address]- 3626 May, [facility] [place] [facility] [address] [id number] [place] [address]- 8889 May, [facility] [place] [facility] [address] [id number] [place] [address]- 7567 May, [facility] [place] [facility] [address] [id number] [place] [address]- 3993 May, [facility] [place] [facility] [address] [id number] [place] [address]- 1886 May, [facility] [place] [facility] [address] [id number] [place] [address]- 3425 May, [facility] [place] [facility] [address] [id number] [place] [address]- 1053 May, [facility] [place] [facility] [address] [id number] [place] [address]- 7309 Mar, [facility] [place] [facility] [address] [id number] [place] [address]- 7218 Mar, [facility] [place] [facility] [address] [id number] [place] [address] Mar, [facility] [place] [facility] [address] [id number] [place] [address]- 1642 Mar, [facility] [place] [facility] [address] [id number] [place] [address]- 3336 Jan, [facility] [place] [facility] [address] [id number] [place] [address]- 2993 Jan, [facility] [place] [facility] [address] [id number] [place] [address]- 4559 Nov, [facility] [place] [facility] [address] [id number] [place] [address]- 4873 Nov, [facility] [place] [facility] [address] [id number] [place] [address]- 3678 Nov, [facility] [place] [facility] [address] [id number] [place] [address]- 0459 Nov, [facility] [place] [facility] [address] [id number] [place] [address]- 2965 Nov, [facility] [place] [facility] [address] [id number] [place] [address]- 8808 Nov, [facility] [place] [facility] [address] [id number] [place] [address]- 8206 Aug, [facility] [place] [facility] [address] [id number] [place] [address]- 4424 Aug, [facility] [place] [facility] [address] [id number] [place] [address]- 7827 Apr, [facility] [place] [facility] [address] [id number] [place] [address]- 9851 14 Apr, 2013 [facility] [place] [facility] [address] [id number] [place] [address]- 3705 06 Apr, 2013 [facility] [place] [facility] [address] [id number] [place] [address]- 8973 25 Jan, 2013 [facility] [place] [facility] [address] [id number] [place] [address]- 3455 05 Jan, 2013 [facility] [place] [facility] [address] [id number] [place] [address]- 6449 December, [facility] [place] [facility] [address] [id number] [place] [address]- 3707 Sep, [facility] [place] [facility] [address] [id number] [place] [address]- 6693 Sep, [facility] [place] [facility] [address] [facility] [id number] [place] [address]- 9324 Aug, [facility] [place] [facility] [address] [id number] [place] [address]40 Jul, [facility] [place] [facility] [address] [id number] [place] [address]- 5471 Jul, [facility] [place] [facility] [address] [id number] [place] [address]- 5821 Jul, [facility] [place] [facility] [address] [facility] [id number] [place] [address]- 6217 Jul, [facility] [place] [facility] [address] [id number] [address]- 9920 Jun, [facility] [place] [facility] [address] [id number] [address]- 4252 Jun, [facility] [place] [facility] [address] [id number] [place] [address]- 2307 Jun, [facility] [place] [facility] [address] [id number], [place] [address]- 6504 Jun, [facility] [place] [facility] [address] [id number], [place] [address]- 1903 Jun, [facility] [place] [facility] [address] [id number] [address]- 2175 Jun, [facility] [place] [facility] [address] [facility] [id number], [place] [address]- 2333 May, [facility] [place] [facility] [address] [facility] [id number], [place] [address]- 5896 May, [facility] [place] [facility] [address] [place] [id number] [address]- [address] 29 Jan, 2012 [facility] [id number] [address]- [address]207 Jan, [facility] [id number] [address]- 5650 Jan, [facility] [id number] [address]- 8255 December, [facility] [id number] [address]- 0692 Sep, [facility] [id number] [place] [address] 04044- 0857 Jun, [facility] [id number] [address]- 0461 Jun, [facility] [id number] [address]- 5828 13 Apr, 2010 [facility] [address] [id number] [address]- 3862 14 Apr, 2009 IMMUNIZATIONS No Known Immunizations SOCIAL HISTORY Never Assessed REASON FOR VISIT lab order PLAN OF CARE VITAL SIGNS MEDICATIONS No [...]
--- OUTSIDE RECORDS SUMMARY | 2018-05-28 06:52 | XMS REPORT | Continuity of Care Document ---
Author Author [facility] Address Unknown Phone Unavailable Allergies Active Description Code Type Severity Reaction Onset Reported/Identified Relationship to Patient Clinical Status Yes NO KNOWN DRUG ALLERGIES UNKNOWN NO KNOWN DRUG ALLERG Yes No Known Drug Allergies [id number] Drug Allergy Unknown N/A 06/25/2011 Medications Medication Packaging Start Date Stop Date Route Dosage Sig TETANUS,DIPTH,PERT ADULT INJ 0 (ADACEL SYRINGE) ml 04/19/2018 04/19/2018 ONCE&1640 AMOXICILLIN CAP 500 MG (AMOXIL) MG 04/19/2018 04/19/2018 ONCE&1640 Problems Date Dx Coded Attending Type Code Diagnosis Diagnosed By 04/25/2009 RADHA PAYNE DO 728.85 MUSCLE SPASM 04/25/2009 RADHA PAYNE DO V70.0 NORMAL ROUTINE HISTORY AND PHYSICAL ADULT (18-65) 04/25/2009 RADHA PAYNE DO 728.85 MUSCLE SPASM 04/25/2009 RADHA PAYNE DO V70.0 NORMAL ROUTINE HISTORY AND PHYSICAL ADULT (18-65) 04/25/2009 728.85 MUSCLE SPASM 04/25/2009 V70.0 NORMAL ROUTINE HISTORY AND PHYSICAL ADULT (18-65) 04/25/2009 RADHA PAYNE DO 728.85 MUSCLE SPASM 04/25/2009 RADHA PAYNE DO V70.0 NORMAL ROUTINE HISTORY AND PHYSICAL ADULT (18-65) 04/25/2009 KIYA BIGGS APRN 728.85 MUSCLE SPASM 04/25/2009 KIYA BIGGS APRN V70.0 NORMAL ROUTINE HISTORY AND PHYSICAL ADULT (18-65) 04/25/2009 RADHA PAYNE DO 728.85 MUSCLE SPASM 04/25/2009 ROMAN PAYNE DOA K V70.0 NORMAL ROUTINE HISTORY AND PHYSICAL ADULT (18-65) 04/25/2009 RADHA PAYNE DO 728.85 MUSCLE SPASM 04/25/2009 ROMAN PAYNE DOA K V70.0 NORMAL ROUTINE HISTORY AND PHYSICAL ADULT (18-65) 04/25/2009 KIYA BIGGS APRN 728.85 MUSCLE SPASM 04/25/2009 KIYA BIGGS APRN V70.0 NORMAL ROUTINE HISTORY AND PHYSICAL ADULT (18-65) 04/24/2010 PAYNE DO, RADHA K 692.6 CONTACT DERMATITIS AND OTHER ECZEMA, DUE TO PLANTS [EXCEPT FOOD] 04/24/2010 PAYNE DO, RADHA K 692.6 CONTACT DERMATITIS AND OTHER ECZEMA, DUE TO PLANTS [EXCEPT FOOD] 04/24/2010 692.6 CONTACT DERMATITIS AND OTHER ECZEMA, DUE TO PLANTS [EXCEPT FOOD] 04/24/2010 PAYNE DO, RADHA K 692.6 CONTACT DERMATITIS AND OTHER ECZEMA, DUE TO PLANTS [EXCEPT FOOD] 04/24/2010 KIYA BIGGS APRN 692.6 CONTACT DERMATITIS AND OTHER ECZEMA, DUE TO PLANTS [EXCEPT FOOD] 04/24/2010 PAYNE DO, RADHA K 692.6 CONTACT DERMATITIS AND OTHER ECZEMA, DUE TO PLANTS [EXCEPT FOOD] 04/24/2010 PAYNE DO, RADHA K 692.6 CONTACT DERMATITIS AND OTHER ECZEMA, DUE TO PLANTS [EXCEPT FOOD] 04/24/2010 KIYA BIGGS APRN 692.6 CONTACT DERMATITIS AND OTHER ECZEMA, DUE TO PLANTS [EXCEPT FOOD] 06/22/2011 PAYNE DO, RADHA K 466.0 BRONCHITIS, ACUTE 06/22/2011 PAYNE DO, RADHA K 466.0 BRONCHITIS, ACUTE 06/22/2011 466.0 BRONCHITIS, ACUTE 06/22/2011 PAYNE DO, RADHA K 466.0 BRONCHITIS, ACUTE 06/22/2011 KIYA BIGGS APRN 466.0 BRONCHITIS, ACUTE 06/22/2011 PAYNE DO, RADHA K 466.0 BRONCHITIS, ACUTE 06/22/2011 PAYNE DO, RADHA K 466.0 BRONCHITIS, ACUTE 06/22/2011 KIYA BIGGS APRN 466.0 BRONCHITIS, ACUTE 06/26/2011 Ot 305.1 06/26/2011 Ot 401.9 06/26/2011 Ot 410.91 06/26/2011 Ot 414.01 06/26/2011 Ot 414.8 06/26/2011 Ot 428.0 06/26/2011 Ot 428.21 06/26/2011 Ot 790.29 01/25/2012 PAYNE DO, RADHA K 053.9 HERPES ZOSTER WITHOUT COMPLICATION 01/25/2012 PAYNE DO, RADHA K 053.9 HERPES ZOSTER WITHOUT COMPLICATION 01/25/2012 053.9 HERPES ZOSTER WITHOUT COMPLICATION 01/25/2012 PAYNE DO, RADHA K 053.9 HERPES ZOSTER WITHOUT COMPLICATION 01/25/2012 KIYA BIGGS APRN 053.9 HERPES ZOSTER WITHOUT COMPLICATION 01/25/2012 PAYNE DO, RADHA K 053.9 HERPES ZOSTER WITHOUT COMPLICATION 01/25/2012 PAYNE DO, RADHA K 053.9 HERPES ZOSTER WITHOUT COMPLICATION 01/25/2012 KIYA BIGGS APRN 053.9 HERPES ZOSTER WITHOUT COMPLICATION 05/23/2012 PAYNE DO, RADHA K 691.8 ECZEMA 05/23/2012 PAYNE DO, RADHA K 698.9 UNSPECIFIED PRURITIC DISORDER 05/23/2012 PAYNE DO, RADHA K 782.1 RASH 05/23/2012 PAYNE DO, RADHA K 691.8 ECZEMA 05/23/2012 PAYNE DO, RADHA K 698.9 UNSPECIFIED PRURITIC DISORDER 05/23/2012 PAYNE DO, RADHA K 782.1 RASH 05/23/2012 691.8 ECZEMA 05/23/2012 698.9 UNSPECIFIED PRURITIC DISORDER 05/23/2012 782.1 RASH 05/23/2012 PAYNE DO, RADHA K 691.8 ECZEMA 05/23/2012 PAYNE DO, RADHA K 698.9 UNSPECIFIED PRURITIC DISORDER 05/23/2012 PAYNE DO, RADHA K 782.1 RASH 05/23/2012 KIYA BIGGS APRN 691.8 ECZEMA 05/23/2012 KIYA BIGGS APRN 698.9 UNSPECIFIED PRURITIC DISORDER 05/23/2012 KIYA BIGGS APRN 782.1 RASH 05/23/2012 PAYNE DO, RADHA K 691.8 ECZEMA 05/23/2012 PAYNE DO, RADHA K 698.9 UNSPECIFIED PRURITIC DISORDER 05/23/2012 PAYNE DO, RADHA K 782.1 RASH 05/23/2012 PAYNE DO, RADHA K 691.8 ECZEMA 05/23/2012 PAYNE DO, RADHA K 698.9 UNSPECIFIED PRURITIC DISORDER 05/23/2012 PAYNE DO, RADHA K 782.1 RASH 05/23/2012 KIYA BIGGS APRN 691.8 ECZEMA 05/23/2012 KIYA BIGGS APRN 698.9 UNSPECIFIED PRURITIC DISORDER 05/23/2012 KIYA BIGGS APRN 782.1 RASH 07/11/2012 PAYNE DO, RADHA K 272.4 DYSLIPIDEMIA 07/11/2012 PAYNE DO, RADHA K 414.00 CAD 07/11/2012 PAYNE DO, RADHA K 272.4 DYSLIPIDEMIA 07/11/2012 PAYNE DO, RADHA K 414.00 CAD 07/11/2012 272.4 DYSLIPIDEMIA 07/11/2012 414.00 CAD 07/11/2012 PAYNE DO, RADHA K 272.4 DYSLIPIDEMIA 07/11/2012 PAYNE DO, RADHA K 414.00 CAD 07/11/2012 KIYA BIGGS APRN 272.4 DYSLIPIDEMIA 07/11/2012 KIYA BIGGS APRN 414.00 CAD 07/11/2012 PAYNE DO, RADHA K 272.4 DYSLIPIDEMIA 07/11/2012 PAYNE DO, RADHA K 414.00 CAD 07/11/2012 PAYNE DO, RADHA K 272.4 DYSLIPIDEMIA 07/11/2012 PAYNE DO, RADHA K 414.00 CAD 07/11/2012 KIYA BIGGS APRN 272.4 DYSLIPIDEMIA 07/11/2012 KIYA BIGGS APRN 414.00 CAD 01/14/2013 496 COPD 01/14/2013 V65.42 COUNSELING - SMOKING CESSATION 01/14/2013 PAYNE DO, RADHA K 496 COPD 01/14/2013 PAYNE DO, RADHA K V65.42 COUNSELING - SMOKING CESSATION 01/14/2013 KIYA BIGGS APRN 496 COPD 01/14/2013 KIYA BIGGS APRN V65.42 COUNSELING - SMOKING CESSATION 01/14/2013 PAYNE DO, RADHA K 496 COPD 01/14/2013 PAYNE DO, RADHA K V65.42 COUNSELING - SMOKING CESSATION 01/14/2013 PAYNE DO, RADHA K 496 COPD 01/14/2013 PAYNE DO, RADHA K V65.42 COUNSELING - SMOKING CESSATION 01/14/2013 KIYA BIGGS APRN 496 COPD 01/14/2013 KIYA BIGGS APRN V65.42 COUNSELING - SMOKING CESSATION 09/02/2013 KIYA BIGGS APRN 462 PHARYNGITIS ACUTE 09/02/2013 PAYNE DO, RADHA K 462 PHARYNGITIS ACUTE 09/02/2013 PAYNE DO, RADHA K 462 PHARYNGITIS ACUTE 09/02/2013 KIYA BIGGS APRN 462 PHARYNGITIS ACUTE 03/19/2014 RADHA PAYNE DO 112.2 CANDIDIASIS OF OTHER UROGENITAL SITES 03/19/2014 RADHA PAYNE DO 401.1 HYPERTENSION, BENIGN ESSENTIAL 03/19/2014 KIYA BIGGS APRN 112.2 CANDIDIASIS OF OTHER UROGENITAL SITES 03/19/2014 KIYA BIGGS APRN 401.1 HYPERTENSION, BENIGN ESSENTIAL 12/29/2014 ULICES HANNAH MD Ot 272.4 HYPERLIPIDEMIA NEC/NOS 12/29/2014 ULICES HANNAH MD Ot 305.1 TOBACCO USE DISORDER 12/29/2014 ULICES HANNAH MD Ot 401.9 HYPERTENSION NOS 12/29/2014 ULICES HANNAH MD Ot 414.01 CORONARY ATHEROSCLEROSIS OF [place] CORON 12/29/2014 ULICES HANNAH MD Ot 414.02 CORON ATHEROSCLEROSIS AUTOLOG VEIN BYPAS 12/29/2014 ULICES HANNAH MD Ot 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 12/29/2014 ULICES HANNAH MD Ot 428.0 CONGESTIVE HEART FAILURE NOS 12/29/2014 ULICES HANNAH MD Ot 786.50 CHEST PAIN NOS 12/29/2014 ULICES HANNAH MD Ot 790.29 OTHER ABNORMAL GLUCOSE 12/29/2014 ULICES HANNAH MD Ot 794.30 ABN CARDIOVASC STUDY NOS 12/29/2014 ULICES HANNAH MD Ot V45.81 AORTOCORONARY BYPASS 12/29/2014 ULICES HANNAH MD Ot V58.69 OTH MED,LT,CURRENT USE 01/20/2015 ULICES HANNAH MD Ot 401.9 01/20/2015 ULICES HANNAH MD Ot 414.00 01/20/2015 ULICES HANNAH MD Ot 428.0 01/20/2015 ULICES HANNAH MD Ot 401.9 01/20/2015 ULICES HANNAH MD Ot 414.00 01/20/2015 ULICES HANNAH MD Ot 428.0 04/27/2015 ULICES HANNAH MD Ot 401.9 04/27/2015 ULICES HANNAH MD Ot 414.00 04/27/2015 ULICES HANNAH MD Ot 428.0 04/27/2015 ULICES HANNAH MD Ot 401.9 04/27/2015 ULICES HANNAH MD Ot 414.00 04/27/2015 LUIZ PARKINSON, ULICES J Ot 428.0 04/27/2015 Ot 250.00 04/27/2015 Ot 397.0 04/27/2015 Ot 401.9 04/27/2015 Ot 414.00 04/27/2015 Ot 424.0 04/27/2015 Ot 428.0 04/27/2015 Ot 397.0 04/27/2015 Ot 414.00 04/27/2015 Ot 424.0 04/27/2015 Ot 428.0 04/27/2015 LUIZ PARKINSON, ULICES Castanon Ot 401.9 04/27/2015 LUIZ PARKINSON, ULICES J Ot 414.00 04/27/2015 LUIZ PARKINSON, ULICES J Ot 428.0 04/27/2015 LUIZ PARKINSON, ULICES J Ot 401.9 04/27/2015 LUIZ PARKINSON, ULICES J Ot 414.00 04/27/2015 LUIZ PARKINSON, ULICES J Ot 428.0 04/27/2015 LUIZ PARKINSON, ULICES J Ot 401.9 04/27/2015 LUIZ PARKINSON, ULICES J Ot 414.00 04/27/2015 LUIZ PARKINSON, ULICES J Ot 428.0 04/28/2015 LUIZ PARKINSON, ULICES J Ot 401.9 04/28/2015 LUIZ PARKINSON, ULICES J Ot 414.00 04/28/2015 LUIZ PARKINSON, ULICES J Ot 428.0 05/11/2015 LUIZ PARKINSON, ULICES J Ot 401.9 05/11/2015 LUIZ PARKINSON, ULICES J Ot 414.00 05/11/2015 LUIZ PARKINSON, ULICES J Ot 428.0 07/05/2015 LUIZ PARKINSON, ULICES J Ot 401.9 07/05/2015 LUIZ PARKINSON, FATUMAHAR J Ot 414.00 07/05/2015 LUIZ PARKINSON, ULICES J Ot 428.0 07/20/2015 LUIZ PARKINSON, ULICES J Ot 401.9 07/20/2015 LUIZ PARKINSON, ULICES J Ot 414.00 07/20/2015 LUIZ PARKINSON, ULICES J Ot 428.0 04/19/2018 Alberto Sarmiento 882.0 OPEN WOUND OF HAND EXCEPT FINGERS ALONE, WITHOUT MENTION OF COMPLICATION 04/19/2018 Alberto Sarmiento S61.411A LACERATION WITHOUT FOREIGN BODY OF RIGHT HAND, INIT ENCNTR 05/09/2018 ULICES HANNAH MD Ot 401.9 HYPERTENSION NOS 05/09/2018 ULICES HANNAH MD Ot 414.00 CORON ATHEROSCLER NOS TYPE VESSEL, NATIV 05/09/2018 ULICES HANNAH MD Ot 428.0 CONGESTIVE HEART FAILURE NOS 05/20/2018 ULICES HANNAH MD Ot E11.9 TYPE 2 DIABETES MELLITUS WITHOUT COMPLIC 05/20/2018 ULICES HANNAH MD Ot E78.5 HYPERLIPIDEMIA, UNSPECIFIED 05/20/2018 ULICES HANNAH MD Ot I11.0 HYPERTENSIVE HEART DISEASE WITH HEART FA 05/20/2018 ULICES HANNAH MD Ot I25.10 ATHSCL HEART DISEASE OF [place] CORONARY 05/20/2018 ULICES HANNAH MD Ot I50.22 CHRONIC SYSTOLIC (CONGESTIVE) HEART FAIL 05/20/2018 ULICES HANNAH MD Ot Z72.0 TOBACCO USE 05/23/2018 ULICES HANNAH MD Ot E11.9 TYPE 2 DIABETES MELLITUS WITHOUT COMPLIC 05/23/2018 ULICES HANNAH MD Ot E78.5 HYPERLIPIDEMIA, UNSPECIFIED 05/23/2018 ULICES HANNAH MD Ot I08.1 RHEUMATIC DISORDERS OF BOTH MITRAL AND T 05/23/2018 ULICES HANNAH MD Ot I11.0 HYPERTENSIVE HEART DISEASE WITH HEART FA 05/23/2018 ULICES HANNAH MD Ot I25.10 ATHSCL HEART DISEASE OF [place] CORONARY 05/23/2018 ULICES HANNAH MD Ot I50.9 HEART FAILURE, UNSPECIFIED 05/23/2018 ULICES HANNAH MD Ot Z72.0 TOBACCO USE Procedures Code Description [place] [address] ROUTINE VENIPUNCTURE 07/11/2012 58639 LIVER PANEL (LFT) 07/11/2012 79097 LIPID PANEL 07/11/2012 88861 ROUTINE VENIPUNCTURE 04/17/2013 19635 LIVER PANEL (LFT) 04/17/2013 16750 LIPID PANEL 04/17/2013 44495 ROUTINE VENIPUNCTURE 11/17/2013 32519 LIPID PANEL 11/17/2013 31044 LIVER PANEL (LFT) 11/17/2013 56527 ROUTINE VENIPUNCTURE 05/28/2014 Cardiolog Ulices Hannah 05/28/2014 68836 LIPID PANEL 05/28/2014 26682 LIVER PANEL (LFT) 05/28/2014 Results Test Result Range CBC With Differential/Platelet - 03/14/17 08:47 WBC 10.9 x10E3/uL 3.4-10.8 RBC 4.63 x10E6/uL 4.14-5.80 Hemoglobin 15.0 g/dL 12.6-17.7 Hematocrit 42.4 % 37.5-51.0 MCV 92 fL 79-97 MCH 32.4 pg 26.6-33.0 MCHC 35.4 g/dL 31.5-35.7 RDW 12.8 % 12.3-15.4 Platelets 193 x10E3/uL 150-379 Neutrophils 73 % Lymphs 20 % Monocytes 5 % Eos 1 % Basos 0 % Neutrophils (Absolute) 8.0 x10E3/uL 1.4-7.0 Lymphs (Absolute) 2.1 x10E3/uL 0.7-3.1 Monocytes(Absolute) 0.5 x10E3/uL 0.1-0.9 Eos (Absolute) 0.2 x10E3/uL 0.0-0.4 Baso (Absolute) 0.0 x10E3/uL 0.0-0.2 Immature Granulocytes 1 % Immature Grans (Abs) 0.1 x10E3/uL 0.0-0.1 Comp. Metabolic Panel (14) - 03/14/17 08:47 Glucose, Serum 143 mg/dL 65-99 BUN 14 mg/dL 8-27 Creatinine, Serum 0.88 mg/dL 0.76-1.27 eGFR If NonAfricn Am 93 mL/min/1.73 >59 eGFR If Africn Am 107 mL/min/1.73 >59 BUN/Creatinine Ratio 16 10-24 Sodium, Serum 139 mmol/L 134-144 Potassium, Serum 4.2 mmol/L 3.5-5.2 Chloride, Serum 101 mmol/L 96-106 Carbon Dioxide, Total 19 mmol/L 18-29 Calcium, Serum 9.0 mg/dL 8.6-10.2 Protein, Total, Serum 6.3 g/dL 6.0-8.5 Albumin, Serum 4.3 g/dL 3.6-4.8 Globulin, Total 2.0 g/dL 1.5-4.5 A/G Ratio 2.2 1.2-2.2 Bilirubin, Total 0.7 mg/dL 0.0-1.2 Alkaline Phosphatase, S 45 IU/L 39-117 AST (SGOT) 12 IU/L 0-40 ALT (SGPT) 11 IU/L 0-44 Lipid Panel - 03/14/17 08:47 Cholesterol, Total 112 mg/dL 100-199 Triglycerides 74 mg/dL 0-149 HDL Cholesterol 44 mg/dL >39 VLDL Cholesterol Leonidas 15 mg/dL 5-40 LDL Cholesterol Calc 53 mg/dL 0-99 Encounters ACCT No. Visit Date/Time Discharge Status Pt. Type Provider Facility Loc./Unit Complaint [id number] 05/28/2014 08:07:00 05/28/2014 23:59:59 CLS Outpatient KIYA BIGGS APRN [id number] 03/19/2014 10:51:00 03/19/2014 23:59:59 CLS Outpatient RADHA PAYNE DO [id number] 11/17/2013 08:09:00 11/17/2013 23:59:59 CLS Outpatient RADHA PAYNE DO [id number] 09/02/2013 14:27:00 09/02/2013 23:59:59 CLS Outpatient KIYA BIGGS APRN [id number] 04/17/2013 08:09:00 04/17/2013 23:59:59 CLS Outpatient RADHA PAYNE DO [id number] 07/11/2012 08:13:00 07/11/2012 23:59:59 [place] [id number] 05/23/2012 08:24:00 05/23/2012 23:59:59 CLS Outpatient RADHA PAYNE DO [id number] 01/14/2013 15:24:00 Document Registration [id number] 01/28/2018 15:20:00 01/28/2018 23:59:59 CLS Outpatient KIYA BIGGS APRN [facility] [id number] 04/19/2018 16:00:00 04/19/2018 17:20:00 DIS Outpatient Torsten [place] [facility] [place] [id number] 04/19/2018 17:15:56 Document Registration [id number] 05/21/2018 09:20:00 05/21/2018 23:59:59 CLS Outpatient ULICES HANNAH MD [facility] CARD CAD [id number] 05/19/2018 07:48:00 05/19/2018 23:59:59 CLS Outpatient ULICES HANNAH MD [facility] CARD CAD [id number] 12/29/2014 07:42:00 12/29/2014 15:00:00 DIS Outpatient LUICES HANNAH MD [facility] CP,ABNORMAL STRESS,CHF, HTN,HLE,CAD [id number] 12/27/2014 07:33:00 12/27/2014 23:59:59 CLS Outpatient ULICES HANNAH MD [facility] CARD CAD,CHF,HTN [id number] 12/14/2014 09:55:00 12/14/2014 23:59:59 CLS Outpatient ULICES HANNAH MD [facility] CARD [id number] 05/28/2018 08:00:00 PEN Preadmit ULICES HANNAH MD [facility] ABN STRESS [id number] 04/27/2015 09:24:00 Document Registration [id number] 10/05/2011 10:46:00 Document Registration [id number] 06/25/2011 23:10:00 Document Registration [id number] 03/15/2017 08:08:00 Document Registration
[2018-05-28] MEDS ORDERED: NS IV 1000 ML 1,000 ML ONE (06:54)
[2018-05-28] MEDS ORDERED: HEParin (CATH LAB) 2,000 ML IV ONE (06:54)
[2018-05-28] MEDS ORDERED: LIDOCAINE 1% INJ 20 ML 20 ML VIAL ONE (06:54)
[2018-05-28] MEDS ORDERED: MIDAZOLAM 5 MG/5 ML (VERSED) VIAL ONE (07:22)
[2018-05-28] MEDS ORDERED: fentaNYL INJECTION 100 MCG/2 ML AMP ONE (07:23)
[2018-05-28] MEDS ORDERED: HEParin 1000 UNIT/ML (10ML VIAL) FOR BOLUS ONE (07:23)
[2018-05-28 07:25] LABS: BILIRUBIN,URINE NEGATIVE (NEGATIVE); CLARITY,URINE CLEAR; COLOR,URINE YELLOW; GLUCOSE, URINE (UA) NEGATIVE (NEGATIVE); HEMOGLOBIN 15.6 G/DL (13.3-17.7); KETONES,URINE NEGATIVE (NEGATIVE); LEUKOCYTE ESTERASE ,URINE NEGATIVE (NEGATIVE); MEAN PLATELET VOLUME 10.1 FL (7.4-10.4); NITRITE,URINE NEGATIVE (NEGATIVE); PH,URINE 6 (5-9); PROTEIN,URINE NEGATIVE (NEGATIVE); RED BLOOD COUNT 4.59 10^6/uL (4.35-5.85); RED CELL DISTRIBUTION WIDTH 12.6 % (10.0-14.5); UROBILINOGEN,URINE NORMAL (NORMAL); WHITE BLOOD COUNT 8.6 10^3/uL (4.3-11.0)
[2018-05-28] MEDS ORDERED: METF-399 PO (07:31)
[2018-05-28 07:38] LABS: BACTERIA,URINE NEGATIVE /HPF; SQUAMOUS EPITHELIAL CELL,UR 0-2 /HPF
[2018-05-28 07:41] LABS: INR 0.9 (0.8-1.4); PROTHROMBIN TIME PATIENT 12.4 SEC (12.2-14.7)
[2018-05-28] MEDS ORDERED: FLU QUADRIvalent (5+ YOA) 2018-2019 (AFLURIA) 0.5 ML IM ONE (07:45)
--- NOTE | 2018-05-28 07:46 | Diagnostic Imaging Report ---
INDICATION: Evaluation prior to heart catheterization with potential coronary artery stent. Coronary artery disease, hypertension, diabetes. TECHNIQUE: Single view chest 7:25 AM. CORRELATION STUDY: 12/29/2014 FINDINGS: Poststernotomy changes. Heart size, mediastinum and vasculature overall generally stable. Lung estrada remain relatively clear. Some hyperinflation suggested. IMPRESSION: 1. Stable chest with poststernotomy changes. Dictated by: Dictated on workstation # [id number]
[2018-05-28 07:50] LABS: ALANINE AMINOTRANSFERASE 15 U/L (0-55); ALBUMIN 4.5 GM/DL (3.2-4.5); ALKALINE PHOSPHATASE 50 U/L (40-136); BILIRUBIN,TOTAL 0.5 MG/DL (0.1-1.0); BUN/CREATININE RATIO 14; CALCIUM 9.3 MG/DL (8.5-10.1); CARBON DIOXIDE 23 MMOL/L (21-32); CHLORIDE 105 MMOL/L (98-107); CHOLESTEROL 117 MG/DL (< 200); CREATININE SERUM 0.84 MG/DL (0.60-1.30); GFR ESTIMATED > 60; GLUCOSE 148 MG/DL (70-105); HDL CHOLESTEROL 48 MG/DL (40-60); POTASSIUM 4.3 MMOL/L (3.6-5.0); SODIUM 139 MMOL/L (135-145); TOTAL PROTEIN 6.7 GM/DL (6.4-8.2); TRIGLYCERIDES 33 MG/DL (<150); VLDL CHOLESTEROL 7 MG/DL (5-40)
--- NOTE | 2018-05-28 08:15 | Cardiac Procedure Note-CS/ASA ---
Pre-Procedure Note Pre-Op Procedure Note H&P Reviewed The H&P was reviewed, patient examined and no changes noted. Date H&P Reviewed: May 28, 2018 Time H&P Reviewed: 08:15 Conscious Sedation Pre-Proced Time 08:15 ASA Score 3 For ASA 3 and 4: Consider anesthesia and medical clearance. Also, for patients with a history of failed moderate sedation consider anesthesia. Airway Lungs Heart ASA score ASA 1: a normal healthy patient ASA 2: a patient with a mild systemic disease (mid diabetes, controlled hypertension, obesity x ASA 3: a patient with a severe systemic disease that limits activity (angina , COPD, prior Myocardial infarction) ASA 4: a patient with an incapacitating disease that is a constant threat to life (CHF, renal failure) ASA 5: a moribund patient not expected to survive 24 hrs. (ruptured aneurysm) ASA 6: a declared brain patient whose organs are being harvested. For emergent operations, add the letter E after the classification Mallampati Classification Grade 3 Sedation Plan Analgesia, Amnesia, Plan communicated to team members, Discussed options with patient/fam, Discussed risks with patient/fam The patient is an appropriate candidate to undergo the planned procedure, sedation, and anesthesia. The patient immediately re-assessed prior to indication. DARVIN DEE MD May 28, 2018 08:15
[2018-05-28] MEDS ORDERED: NS IV 1000 ML 1,000 ML IV SCH (08:39)
[2018-05-28] MEDS ORDERED: PATIENT MAY USE OWN MEDS, ALL PO SCH (08:45)
--- NOTE | 2018-05-28 08:49 | Cardiac Cath Report ---
Cardiac Cath Report Physician (s)/Word Processor Technician (s) Physician DARVIN DEE MD Pre-Procedure Diagnosis Pre-Procedure Diagnosis: Coronary artery disease Post-Procedure Note Procedure Start Date: May 28, 2018 Name of Procedure: Left heart catheterization Vein graft angiogram, WRIGHT angiogram Left ventriculogram Aortic arch angiogram Findings/Procedure Note PROCEDURE NOTE: After explaining the procedure to the patient, all pros and cons were explained , all questions were answered. The patient signed the consent and then he was placed on the cardiac catheterization laboratory. Groin was prepped SL fashion local anesthesia was used. Sheath placed in the right femoral artery. Shena right and left catheter were used to access the coronary system.Vein Graft evaluated. WRIGHT evaluated. Pigtail was used to access the left ventricular cavity, patient was noted to have heavy calcification at the great neck vessels area, aortic arch and Gram was done. Left ventriculogram was done Aortic arch angiogram was done At the end of the procedure the sheath was removed. Closure device was used FINDINGS: Hemodynamics LV 125/11, end-diastolic pressure of 11 Aorta 143/74 mean of 102 ANATOMY: Left Main has moderate disease Left Anterior Descending is occluded, diagonal artery is occluded, WRIGHT to LAD is patent, vein graft to diagonal is patent Left Circumflex has severe disease at the first obtuse marginal branch, small to moderate in size, the vein graft to the obtuse marginal is known to be occluded, the disease did not change compared to the study of 2014 Right Coronory Artery is known to be occluded, the vein graft to the right coronary artery is patent with small vessel disease distally WRIGHT to LAD is patent with good flow in the LAD. Vein Graft evaluation done for 2 vein grafts, the third vein graft is known to be occluded to the obtuse marginal Vein graft to the right coronary artery is patent with small vessel disease distally, slow flow distally, there are some collateral filling the PDA from the left system Vein graft to diagonal artery is patent with excellent flow distally LV Gram was done showing dilated left ventricle with diffuse left ventricular hypokinesia severe hypokinesia to akinesia at the inferior wall, estimated ejection fraction 35 percent Aorta evaluation done with aortic arch and Gram which showed hypertensive changes, no dissection or aneurysm, ectasia at the origin of the right innominate artery and right carotid, the left carotid has mild disease nonobstructive disease, the left subclavian artery is patent CONCLUSION: 1. Patent WRIGHT to LAD and vein graft to diagonal artery with excellent flow distally 2. Patent vein graft to the right coronary artery with slow flow distally due to small vessel disease 3. Moderate to severe disease at the proximal first obtuse marginal branch, small to moderate in size, known occluded vein graft to the obtuse marginal branch, no change compared to the study of 2014 4. Dilated left ventricle with diffuse left ventricular hypokinesia, more pronounced hypokinesia to akinesia at the inferior wall, estimated ejection fraction 35% 5. Hypertensive changes in the aortic arch, mild ectasia at the origin of the right subclavian/innominate artery, nonobstructive disease in the great neck vessels DISCUSSION AND RECOMMENDATION: Continue to maximize medical therapy no intervention is recommended Anesthesia Type: Conscious Sedation Estimated blood loss (mL): 25 ml Contrast Amount: 106 ml Total Radiation Dose: 630 mGy Post-Procedure Diagnosis Post-operative diagnosis: Coronary artery disease Congestive heart failure, chronic compensated left ventricular systolic dysfunction, ischemic cardiomyopathy with ejection fraction 35 percent Hypertension Hyperlipidemia Diabetes mellitus DARVIN DEE MD May 28, 2018 08:49
[2018-05-28] MEDS ORDERED: METO-451 PO (10:27)
== END 2018-05-28 13:35 | disposition home or self-care (01) ==
LOC: CATH 06:46
PROVIDERS: ATTEND Internal Medicine Cardiovascular Disease
DX: I25.10 Atherosclerotic heart disease of native coronary artery without angina pectoris (principal); I11.0 Hypertensive heart disease with heart failure; I50.22 Chronic systolic (congestive) heart failure; I25.5 Ischemic cardiomyopathy; E78.5 Hyperlipidemia, unspecified; E11.9 Type 2 diabetes mellitus without complications; F17.290 Nicotine dependence, other tobacco product, uncomplicated; I65.23 Occlusion and stenosis of bilateral carotid arteries; R53.83 Other fatigue; Z79.82 Long term (current) use of aspirin; Z79.899 Other long term (current) drug therapy
CPT/HCPCS: 36221; 36415; 71045; 80053; 80061; 81000; 85027; 85610; 85730; 87081; 93458

== ENCOUNTER → 2019-05-19 | Outpatient (CLI) | payer BC ==
[~2019-05-19] MED LIST changes: +HOLD METFORMIN - RECEIVED CONTRAST 20 ML VIAL IV SCH; +IOHEXOL 350 MG/ML 100 ML (OMNIPAQUE 350) VIAL IV ONE; +METF-399 PO; +METO-451 PO; +NS 100 ML (IVPB) BAG IV ONE
[2019-05-19 09:22] LABS: ALANINE AMINOTRANSFERASE 13 U/L (0-55); ALBUMIN 4.4 GM/DL (3.2-4.5); ALKALINE PHOSPHATASE 57 U/L (40-136); BILIRUBIN,TOTAL 0.4 MG/DL (0.1-1.0); BUN/CREATININE RATIO 11; CALCIUM 9.3 MG/DL (8.5-10.1); CARBON DIOXIDE 23 MMOL/L (21-32); CHLORIDE 107 MMOL/L (98-107); CREATININE SERUM 0.82 MG/DL (0.60-1.30); GFR ESTIMATED > 60; GLUCOSE 143 MG/DL (70-105); POTASSIUM 4.3 MMOL/L (3.6-5.0); SODIUM 141 MMOL/L (135-145); TOTAL PROTEIN 6.8 GM/DL (6.4-8.2)
--- NOTE | 2019-05-19 11:23 | Diagnostic Imaging Report ---
PROCEDURE: CT abdomen with contrast only. TECHNIQUE: Multiple contiguous axial images were obtained through the abdomen after the administration of intravenous contrast. Auto Exposure Controls were utilized during the CT exam to meet ALARA standards for radiation dose reduction. INDICATION: Left flank pain. COMPARISON: There are no prior studies available for comparison. FINDINGS: On the initial axial series, there is a 0.9 x 1.3 cm calculus within the left renal pelvis. The delayed images show that the left kidney does show excretion of the contrast. However, this calculus could be producing an intermittent ball-valve type obstruction of the left collecting system. There is also a smaller 2.8 mm calculus in the superior pole of the left kidney. This does not appear to be producing any obstruction. There is no sign of nephrolithiasis on the right, and there is no evidence for obstruction of the right collecting system. There is no solid renal mass identified. The liver, spleen, pancreas, right adrenal gland, inferior vena cava, and gallbladder show no sign of an acute abnormality. The left adrenal gland has a bulky appearance. There is no discrete mass associated with the left adrenal gland. The aorta is not abnormally dilated. 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 I suspect the stenosis is in the 70-80% range. There is no evidence for a hemodynamically significant stenosis of the superior mesenteric artery or renal arteries. There is atherosclerotic plaque near the origin of the inferior mesenteric artery, and there may be diminished arterial blood flow to the inferior mesenteric artery. The stomach is not well distended and consequently difficult to assess. There are numerous fluid-filled segments of small bowel present. This appearance is nonspecific but could be related to an ileus, perhaps secondary to enteritis. Clinical follow-up is recommended. The bone windows show no sign of a fracture or of a destructive lesion. The lung bases are clear. The airline customer service agent film does show cardiomegaly and evidence of prior cardiac surgery. IMPRESSION: 1. There is a 0.9 x 1.3 cm calculus within the left renal pelvis. The left kidney does not appear to be obstructed, but the calculus could be producing an intermittent ball-valve type obstruction of the left kidney. Clinical follow-up is recommended. 2. There is also a small nonobstructive calculus within the left kidney. The right kidney is unremarkable. 3. The fluid-filled segments of small bowel are nonspecific but could be related to an ileus secondary to enteritis. 4. 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 There is also atherosclerotic plaque involving the origin of the inferior mesenteric artery. 5. The left adrenal gland has a bulky appearance, but there is no definite mass visualized. Dictated by: Dictated on workstation # [id number]
== END ==
LOC: RAD 08:40
PROVIDERS: ATTEND Nurse Practitioner Community Health
DX: N20.0 Calculus of kidney (principal); I77.4 Celiac artery compression syndrome; K55.1 Chronic vascular disorders of intestine
CPT/HCPCS: 36415; 74160; 80053

== ENCOUNTER → 2021-12-27 | Outpatient (CLI) | payer MEDICARE, MEDICAID ==
[~2021-12-27] MED LIST changes: -HOLD METFORMIN - RECEIVED CONTRAST 20 ML VIAL IV SCH; -IOHEXOL 350 MG/ML 100 ML (OMNIPAQUE 350) VIAL IV ONE; -NS 100 ML (IVPB) BAG IV ONE
== END ==
LOC: CARD 13:07
PROVIDERS: ATTEND Internal Medicine Cardiovascular Disease
DX: I34.0 Nonrheumatic mitral (valve) insufficiency (principal); I11.9 Hypertensive heart disease without heart failure
CPT/HCPCS: 93306

== ENCOUNTER → 2022-01-29 | Outpatient (CLI) | payer MEDICARE, MEDICAID ==
[~2022-01-29] MED LIST changes: +CATHETER FLUSH 10 ML SYR IVP PRN
[2022-01-29 09:02] VITALS: BP 129/87
--- NOTE | 2022-01-29 11:56 | Cardiology Stress Test Report ---
Stress Test Report Date of Procedure/Referring: Date of Procedure: Jan 29, 2022 PCP Eda Duke Admitting Physician Admitting Physician: Attending Physician: Darvin Hannah MD Indications: CAD Baseline Heart Rate: 52 Baseline Blood Pressure: Blood Pressure Systolic: 129 Blood Pressure Diastolic: 87 Vital Signs Date Time Temp Pulse Resp B/P (MAP) Pulse Ox O2 Delivery O2 Flow Rate FiO2 01/29/22 09:02 64 20 129/87 (101) 95 Room Air Baseline Vital Signs Vital Signs Date Time Temp Pulse Resp B/P (MAP) Pulse Ox O2 Delivery O2 Flow Rate FiO2 01/29/22 09:02 64 20 129/87 (101) 95 Room Air Baseline EKG: Baseline EKG: NSR Summary: After explaining the procedure and details to the patient, he signed the consent and was brought to the stress nuclear laboratory. Patient exercised on standard Chemo protocol, EKG, heart rate and blood pressure were monitored continuously, resting and stress doses of radio tracer were injected, imaging was acquired and reviewed in the short axis, horizontal long axis and vertical long axis views Patient was able to exercise for a total of 5.30 minutes on Chemo protocol, METs 7.1 Maximum heart rate 141 Maximum blood pressure 194/99 Stress EKG, Minimal nondiagnostic changes Recovery EKG, Return to baseline TID: 1.08 SSS: 27 SDS: 0 EF: 28 Conclusion: 1. Fair exercise tolerance for 5 minutes and 30 seconds on standard Chemo protocol, 7.1 METS achieving 91% of maximal expected heart 2. Exercise-induced frequent PVCs and ventricular bigeminy's and ventricular trigeminy's, short, 3 beats nonsustained ventricular tachycardia noted in r ecovery 3. Nondiagnostic EKG changes with exercise return to baseline during recovery 4. Total infarction of the whole inferior wall and inferolateral wall with no reversibility 5. Prominent left ventricle with akinesia of the inferior wall and inferola teral wall, ejection fraction 28% DARVIN HANNAH MD Jan 29, 2022 11:56
== END ==
LOC: CARD 07:30
PROVIDERS: ATTEND Internal Medicine Cardiovascular Disease
DX: I10 Essential (primary) hypertension (principal); I25.10 Atherosclerotic heart disease of native coronary artery without angina pectoris
CPT/HCPCS: 78452; 93017; A9502

== ENCOUNTER → 2022-02-05 | Outpatient (CLI) | payer MEDICARE, MEDICAID ==
[~2022-02-05] MED LIST changes: -CATHETER FLUSH 10 ML SYR IVP PRN
[2022-02-05 08:43] LABS: BASOPHILS % (AUTO) 0 % (0-10); EOSINOPHILS # (AUTO) 0.2 10^3/uL (0.0-0.3); EOSINOPHILS % (AUTO) 2 % (0-10); HEMATOCRIT 45 % (40-54); HEMOGLOBIN 15.5 g/dL (13.3-17.7); LYMPHOCYTES # (AUTO) 1.7 10^3/uL (1.0-4.0); LYMPHOCYTES % (AUTO) 18 % (12-44); MEAN CORPUSCULAR HEMOGLOBIN 34 pg (25-34); MEAN CORPUSCULAR HGB CONC 35 g/dL (32-36); MEAN CORPUSCULAR VOLUME 97 fL (80-99); MEAN PLATELET VOLUME 9.8 fL (9.0-12.2); MONOCYTES # (AUTO) 0.5 10^3/uL (0.0-1.0); MONOCYTES % (AUTO) 5 % (0-12); NEUTROPHILS # (AUTO) 7.1 10^3/uL (1.8-7.8); NEUTROPHILS % (AUTO) 74 % (42-75); PLATELET COUNT 163 10^3/uL (130-400); WHITE BLOOD COUNT 9.6 10^3/uL (4.3-11.0)
[2022-02-05 09:01] LABS: CREATININE SERUM 0.81 MG/DL (0.60-1.30); POTASSIUM 3.9 MMOL/L (3.6-5.0)
[2022-02-06 09:04] LABS: INR 0.9 (0.8-1.4); PROTHROMBIN TIME PATIENT 12.3 SEC (12.2-14.7)
== END ==
LOC: LAB 08:16
PROVIDERS: ATTEND Internal Medicine Cardiovascular Disease
DX: R94.39 Abnormal result of other cardiovascular function study (principal)
CPT/HCPCS: 36415; 80048; 85025; 85610

== ENCOUNTER 2022-02-08 07:45 | Day surgery (SDC) | payer MEDICARE, MEDICAID ==
[2022-02-08] VITALS (9 sets, daily range): BP systolic 117–146; BP diastolic 62–80
[~2022-02-08] VITALS: Ht 167.6 cm; Wt 80.0 kg
[2022-02-08] MEDS ORDERED: LIDOCAINE 1% INJ 20 ML VIAL ONE (07:49)
[2022-02-08] MEDS ORDERED: NS IV 1000 ML 1,000 ML ONE (07:49)
[2022-02-08] MEDS ORDERED: HEParin (CATH LAB) 2,000 ML IV ONE (07:49)
[2022-02-08] MEDS ORDERED: NS IV 1000 ML 1,000 ML IV ONE (08:00)
[2022-02-08] MEDS ORDERED: ASPIRIN 81 MG CHEW (CHILDREN'S ASA) PO ONE (08:00)
[2022-02-08] MEDS ORDERED: CATHETER FLUSH 10 ML SYR IV PRN (08:00)
[2022-02-08] MEDS ORDERED: ASPIRIN 81 MG CHEW (CHILDREN'S ASA) ONE (08:02)
[2022-02-08] MEDS ORDERED: METF-397 PO (08:10)
[2022-02-08] MEDS ORDERED: ENAL10TA16 PO (08:10)
[2022-02-08] MEDS ORDERED: ATOR10TA66 PO (08:10)
[2022-02-08] MEDS ORDERED: FURO40TA4 PO (08:10)
[2022-02-08] MEDS ORDERED: MECO10005 PO (08:10)
[2022-02-08] MEDS ORDERED: DOCU-26 PO (08:10)
[2022-02-08] MEDS ORDERED: LOSA1TAB20 PO (08:10)
[2022-02-08] MEDS ORDERED: METO50TA15 PO (08:12)
[2022-02-08] MEDS ORDERED: POTA-179 PO (08:12)
[2022-02-08 08:28] LABS: PROTHROMBIN TIME PATIENT 13.1 SEC (12.2-14.7)
--- NOTE | 2022-02-08 10:16 | Pre-Op Note & Conscious Sedat ---
Pre-Operative Progress Note H&P Reviewed The H&P was reviewed, patient examined and no changes noted. Date H&P Reviewed: Feb 08, 2022 Time H&P Reviewed: 08:40 Pre-Op Diagnosis: Coronary artery disease with angina, chronic HFrEF, abnl stress test Conscious Sedation Pre-Proced ASA Score 3 For ASA 3 and 4: Consider anesthesia and medical clearance. Also, for patients with a history of failed moderate sedation consider anesthesia. Airway Lungs Heart ASA score ASA 1: a normal healthy patient ASA 2: a patient with a mild systemic disease (mid diabetes, controlled hypertension, obesity ASA 3: a patient with a severe systemic disease that limits activity (angina, COPD, prior Myocardial infarction) ASA 4: a patient with an incapacitating disease that is a constant threat to life (CHF, renal failure) ASA 5: a moribund patient not expected to survive 24 hrs. (ruptured aneurysm) ASA 6: a declared brain- patient whose organs are being harvested. For emergent operations, add the letter E after the classification Mallampati Classification Grade 1 Sedation Plan Analgesia, Amnesia, Plan communicated to team members, Discussed options with patient/fam, Discussed risks with patient/fam The patient is an appropriate candidate to undergo the planned procedure, sedation, and anesthesia. The patient immediately re-assessed prior to indication. NOREEN ROBERTSON JR, MD Feb 08, 2022 10:16
[2022-02-08] MEDS ORDERED: VERAPAMIL 5 MG/2 ML (CALAN) VIAL IV ONE (10:25)
[2022-02-08] MEDS ORDERED: HEParin 1000 UNIT/ML (10ML VIAL) FOR BOLUS ONE (10:25)
[2022-02-08] MEDS ORDERED: MIDAZOLAM 5 MG/5 ML (VERSED) VIAL ONE (10:25)
[2022-02-08] MEDS ORDERED: fentaNYL INJ 100 MCG/2 ML AMP ONE (10:25)
[2022-02-08] MEDS ORDERED: NITRO DRIP 25000 MCG/D5W 250 ML IV ONE (10:26)
[2022-02-08] MEDS ORDERED: NS IV 1000 ML 1,000 ML IV SCH (11:45)
[2022-02-08] MEDS ORDERED: ISOSORBIDE MONONITRATE 30 MG (IMDUR) TAB PO ONE (11:45)
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
[2022-02-09] MEDS ORDERED: ISOSORBIDE MONONITRATE 30 MG (IMDUR) TAB PO SCH (09:00)
== END 2022-02-08 15:03 | disposition home or self-care (01) ==
LOC: CATH 07:45 → SDC 12:05 → CATH 15:03
PROVIDERS: ATTEND Internal Medicine Cardiovascular Disease
DX: I25.119 Atherosclerotic heart disease of native coronary artery with unspecified angina pectoris (principal); Z79.82 Long term (current) use of aspirin; F17.210 Nicotine dependence, cigarettes, uncomplicated; Z79.899 Other long term (current) drug therapy; I11.0 Hypertensive heart disease with heart failure; I50.22 Chronic systolic (congestive) heart failure; E78.2 Mixed hyperlipidemia; I65.23 Occlusion and stenosis of bilateral carotid arteries; E11.9 Type 2 diabetes mellitus without complications; Z79.84 Long term (current) use of oral hypoglycemic drugs
CPT/HCPCS: 85610; 87081; 93455; C1894; 36415